=== PATIENT | male | born 1940 | race Caucasian/White ===

== ENCOUNTER 2018-04-13 07:45 | Inpatient (IN) | payer MEDICARE, OTHER ==
[2018-04-13 08:24] LABS: ADD MAN DIFF? NO
[2018-04-13 08:27] LABS: BASOPHILS % 0.1 % (0.0-2.0); HEMATOCRIT 40.5 % (42.0-52.0); HEMOGLOBIN 13.6 g/dl (14.0-18.0); LYMPHOCYTES # 1.5 10^3/ul (0.8-2.9); LYMPHOCYTES % 21.2 % (15.0-51.0); MEAN CORPUSCULAR HEMOGLOBIN 29.8 pg (29.0-33.0); MEAN CORPUSCULAR HGB CONC 33.6 g/dl (32.0-37.0); MEAN CORPUSCULAR VOLUME 88.8 fl (82.0-101.0); MEAN PLATELET VOLUME 9.7 fl (7.4-10.4); MONOCYTE # 0.5 10^3/ul (0.3-0.9); MONOCYTES % 7.2 % (0.0-11.0); NEUTROPHILS % 71.4 % (39.0-77.0); PLATELET COUNT 126 10^3/UL (140-415); POSITIVE DIFF @See below; RED BLOOD COUNT 4.56 10^6/ul (4.70-6.10); RED CELL DISTRIBUTION WIDTH 13.4 % (11.5-14.5)
[2018-04-13 08:47] LABS: INR 0.93; PROTIME 12.6 Sec (11.9-14.9)
[2018-04-13 08:48] LABS: PARTIAL THROMBOPLASTIN TIME 27.3 Sec (25.0-35.0)
[2018-04-13 08:50] LABS: ALANINE AMINOTRANSFERASE 47 IU/L (13-69); ALBUMIN 4.2 g/dl (3.3-4.9); ALKALINE PHOSPHATASE 47 IU/L (42-121); AMYLASE 57 U/L (11-123); ANION GAP 16 (8-16); ASPARTATE AMINO TRANSFERASE 37 IU/L (15-46); BILIRUBIN,INDIRECT 1.1 mg/dl (0-1.1); BILIRUBIN,TOTAL 1.1 mg/dl (0.2-1.3); BLOOD UREA NITROGEN 19 mg/dl (7-20); CARBON DIOXIDE 24 mmol/L (21-31); CHLORIDE 102 mmol/L (97-110); CREATININE 1.04 mg/dl (0.61-1.24); GLUCOSE 163 mg/dl (70-220); LIPASE 45 U/L (23-300); SODIUM 138 mmol/L (135-144)
[2018-04-13 09:02] LABS: TROPONIN-I < 0.012 ng/ml (0.000-0.120)
[2018-04-13] MEDS: SOD CHLORIDE 0.9% 100 ML (09:48)
[2018-04-13] MEDS: IOHEXOL 300MG/ML 150 ML BTL (09:50)
[2018-04-13] MEDS ORDERED: ACETAMINOPHEN 650 MG SUPP PR (13:30)
[2018-04-13] MEDS ORDERED: NACL 0.9% 3 ML SYG IV (13:30)
[2018-04-13] MEDS ORDERED: HYDROCODONE/APAP (5/325) TAB PO (13:30)
[2018-04-13] MEDS ORDERED: morphine 2 MG INJ IV (13:30)
[2018-04-13 14:10] LABS: THYROID STIMULATING HORMONE 0.419 MIU/L (0.465-4.680)
[2018-04-13 14:45] LABS: FOLATE 12.6 ng/ml (2.8-20.0)
[2018-04-13 15:30] LABS: RAPID PLASMA REAGIN NONREACTIVE (NR)
[2018-04-13] MEDS: LORAZEPAM 2 MG INJ IV (15:51)
[2018-04-13] MEDS: SODIUM CHLORIDE 0.9% 1L BAG IV (15:52)
[2018-04-13] MEDS: NICOTINE (21 MG/24 HR) PATCH TRANSDERM ×2 (16:00→17:39)
[2018-04-13 16:34] LABS: ADD UMIC YES; UR ASCORBIC ACID NEGATIVE (NEGATIVE); UR BILIRUBIN (Dip) NEGATIVE (NEGATIVE); UR BLOOD (Dip) NEGATIVE (NEGATIVE); UR CLARITY CLEAR (CLEAR); UR COLOR YELLOW (YELLOW); UR GLUCOSE (Dip) NEGATIVE (NEGATIVE); UR KETONES (Dip) NEGATIVE (NEGATIVE); UR LEUKOCYTE ESTERASE (Dip) NEGATIVE Leu/ul (NEGATIVE); UR NITRITE (Dip) NEGATIVE (NEGATIVE); UR RBC 3 /HPF (0-5); UR SPECIFIC GRAVITY (Dip) 1.034 (1.003-1.030); UR TOTAL PROTEIN (Dip) 2+ mg/dl (NEGATIVE); UR UROBILINOGEN (Dip) NEGATIVE (NEGATIVE); UR WBC 0 /HPF (0-5)
[2018-04-13 16:42] LABS: LIPASE 46 U/L (23-300)
[2018-04-13 16:48] LABS: LACTIC ACID 2.3 mmol/L (0.5-2.0)
[2018-04-13] MEDS: ACETAMINOPHEN 325 MG TAB PO ×2 (17:39→23:12)
[2018-04-13] MEDS: FAMOTIDINE 20 MG INJ IV (17:39)
[2018-04-13] MEDS ORDERED: PIPER-TAZO 3.375 GM IV (PMX) 100 ML IVPB (19:00)
[2018-04-13] MEDS: PIPER-TAZO 3.375 GM IV (PMX) 100 ML IVPB (21:06)
[2018-04-13] MEDS: SENNA/DOCUSATE NA (8.6MG/50MG) TAB PO (21:06)
[2018-04-13] MEDS: MAGNESIUM HYDROXIDE 30ML CUP PO (21:07)
[2018-04-13] MEDS: TAMSULOSIN (SR) 0.4 MG CAP PO (21:07)
[2018-04-13] MEDS: SOD CHLORIDE 0.9% 1,000 ML IV (21:39)
[2018-04-13] MEDS ORDERED: VANCOMYCIN IV PER PHARMACY XX (23:30)
[2018-04-14] MEDS: VANCOMYCIN 1.5 GM in SOD CHLORIDE 0.9% 250 ML IVPB (00:17)
[2018-04-14] MEDS: IBUPROFEN 200 MG TAB PO (01:21)
[2018-04-14 05:05] LABS: ADD MAN DIFF? NO
[2018-04-14 05:11] LABS: BASOPHILS % 0.4 % (0.0-2.0); EOSINOPHILS % 0.1 % (0.0-7.0); HEMOGLOBIN 12.4 g/dl (14.0-18.0); LYMPHOCYTES # 1.9 10^3/ul (0.8-2.9); LYMPHOCYTES % 26.6 % (15.0-51.0); MEAN CORPUSCULAR HEMOGLOBIN 30.2 pg (29.0-33.0); MEAN CORPUSCULAR HGB CONC 33.5 g/dl (32.0-37.0); MEAN PLATELET VOLUME 10.1 fl (7.4-10.4); MONOCYTE # 0.5 10^3/ul (0.3-0.9); MONOCYTES % 6.6 % (0.0-11.0); NEUTROPHIL # 4.6 10^3/ul (1.6-7.5); NEUTROPHILS % 65.7 % (39.0-77.0); PLATELET COUNT 115 10^3/UL (140-415); POSITIVE DIFF @See below; RED BLOOD COUNT 4.11 10^6/ul (4.70-6.10); RED CELL DISTRIBUTION WIDTH 13.3 % (11.5-14.5)
[2018-04-14 05:17] LABS: LACTIC ACID 0.9 mmol/L (0.5-2.0)
[2018-04-14] MEDS: PIPER-TAZO 3.375 GM IV (PMX) 100 ML IVPB ×3 (05:28→22:23)
[2018-04-14 05:33] LABS: ALBUMIN 3.7 g/dl (3.3-4.9); ALBUMIN/GLOBULIN RATIO 1.23; ALKALINE PHOSPHATASE 37 IU/L (42-121); ANION GAP 12 (8-16); ASPARTATE AMINO TRANSFERASE 37 IU/L (15-46); BILIRUBIN,INDIRECT 1.3 mg/dl (0-1.1); BILIRUBIN,TOTAL 1.3 mg/dl (0.2-1.3); BLOOD UREA NITROGEN 25 mg/dl (7-20); CALCIUM 8.4 mg/dl (8.4-10.2); CARBON DIOXIDE 24 mmol/L (21-31); CHLORIDE 104 mmol/L (97-110); CHOL/HDL RATIO 5.4 RATIO; CHOLESTEROL 131 mg/dl (100-200); CREATININE 1.11 mg/dl (0.61-1.24); GLUCOSE 132 mg/dl (70-220); HDL CHOLESTEROL 24 mg/dl (31-75); LDL CHOLESTEROL,CALCULATED 84 mg/dl; MAGNESIUM 2.1 mg/dl (1.7-2.5); PHOSPHORUS 3.5 mg/dl (2.5-4.9); POTASSIUM 3.6 mmol/L (3.5-5.1); SODIUM 136 mmol/L (135-144); TOTAL PROTEIN 6.7 g/dl (6.1-8.1); TRIGLYCERIDES 115 mg/dl (0-149)
[2018-04-14] MEDS: ONDANSETRON 4 MG INJ IV ×2 (05:34→11:04)
[2018-04-14 07:21] LABS: LYMPHOCYTES #M 1.7 10^3/ul (0.8-2.9); LYMPHOCYTES % (M) 25 % (15-51); MONOCYTE #M 0.1 10^3/ul (0.3-0.9); MONOCYTES % (M) 2 % (0-11); PLASMAC%(M) 1 % (0); PLATELET ESTIMATE DECREASED; SEGMENTED NEUTROPHILS (M) % 72 % (39-77); SMUDGE%M 6 % (0-0)
[2018-04-14 07:24] LABS: ALANINE AMINOTRANSFERASE 47 IU/L (13-69)
[2018-04-14] MEDS: FAMOTIDINE 20 MG INJ IV (08:39)
[2018-04-14] MEDS: ENOXAPARIN 30 MG/0.3 ML SYG SC (08:39)
[2018-04-14] MEDS: NICOTINE (21 MG/24 HR) PATCH TRANSDERM (08:40)
[2018-04-14] MEDS ORDERED: FAMOTIDINE 20 MG TAB PO (09:00)
[2018-04-14 09:48] LABS: HEMOGLOBIN A1C 6.6 % (0-5.9)
[2018-04-14] MEDS: ACETAMINOPHEN 325 MG TAB PO ×2 (13:00→20:36)
[2018-04-14] MEDS ORDERED: VANCOMYCIN 1.25 GM in SOD CHLORIDE 0.9% 250 ML IVPB (13:00)
[2018-04-14] MEDS: VANCOMYCIN 1.25 GM in SOD CHLORIDE 0.9% 250 ML IVPB (13:52)
[2018-04-14] MEDS: SOD CHLORIDE 0.9% 1,000 ML IV (14:10)
[2018-04-14] MEDS ORDERED: MAGNESIUM HYDROXIDE 30ML CUP PO (20:00)
[2018-04-14] MEDS: SENNA/DOCUSATE NA (8.6MG/50MG) TAB PO (20:23)
[2018-04-14] MEDS: TAMSULOSIN (SR) 0.4 MG CAP PO (20:27)
[2018-04-14] MEDS: MAGNESIUM HYDROXIDE 30ML CUP PO (20:27)
[2018-04-14] MEDS: SOD CHLORIDE 0.9% 500 ML IV (20:42)
[2018-04-14 23:01] LABS: PROSTATE SPECIFIC ANTIGEN 1.9 ng/ml (0.0-4.0)
[2018-04-15] MEDS: SOD CHLORIDE 0.9% 1,000 ML IV ×3 (01:08→23:30)
[2018-04-15] MEDS: PIPER-TAZO 3.375 GM IV (PMX) 100 ML IVPB ×3 (05:10→21:52)
[2018-04-15] MEDS: ACETAMINOPHEN 325 MG TAB PO ×2 (05:14→18:23)
[2018-04-15 05:49] LABS: ADD MAN DIFF? NO
[2018-04-15 06:04] LABS: WHITE BLOOD COUNT 8.5 10^3/ul (4.8-10.8)
[2018-04-15 06:04] LABS: BASOPHILS % 0.1 % (0.0-2.0); HEMATOCRIT 36.3 % (42.0-52.0); HEMOGLOBIN 12.3 g/dl (14.0-18.0); LYMPHOCYTES # 0.8 10^3/ul (0.8-2.9); LYMPHOCYTES % 9.3 % (15.0-51.0); MEAN CORPUSCULAR HEMOGLOBIN 30.1 pg (29.0-33.0); MEAN CORPUSCULAR HGB CONC 33.9 g/dl (32.0-37.0); MEAN CORPUSCULAR VOLUME 88.8 fl (82.0-101.0); MEAN PLATELET VOLUME 10.5 fl (7.4-10.4); MONOCYTE # 0.5 10^3/ul (0.3-0.9); MONOCYTES % 5.5 % (0.0-11.0); NEUTROPHIL # 7.2 10^3/ul (1.6-7.5); NEUTROPHILS % 84.6 % (39.0-77.0); PLATELET COUNT 121 10^3/UL (140-415); POSITIVE DIFF @See below; RED BLOOD COUNT 4.09 10^6/ul (4.70-6.10); RED CELL DISTRIBUTION WIDTH 12.9 % (11.5-14.5)
[2018-04-15 07:04] LABS: ALBUMIN 3.5 g/dl (3.3-4.9); ALBUMIN/GLOBULIN RATIO 1.16; ALKALINE PHOSPHATASE 38 IU/L (42-121); ANION GAP 11 (8-16); ASPARTATE AMINO TRANSFERASE 30 IU/L (15-46); BILIRUBIN,INDIRECT 1.1 mg/dl (0-1.1); BILIRUBIN,TOTAL 1.1 mg/dl (0.2-1.3); BLOOD UREA NITROGEN 26 mg/dl (7-20); CALCIUM 8.1 mg/dl (8.4-10.2); CARBON DIOXIDE 25 mmol/L (21-31); CHLORIDE 105 mmol/L (97-110); CREATININE 1.02 mg/dl (0.61-1.24); GLUCOSE 210 mg/dl (70-220); POTASSIUM 3.2 mmol/L (3.5-5.1); SODIUM 138 mmol/L (135-144); TOTAL PROTEIN 6.5 g/dl (6.1-8.1)
[2018-04-15 08:09] LABS: ALANINE AMINOTRANSFERASE 46 IU/L (13-69)
[2018-04-15] MEDS: FAMOTIDINE 20 MG INJ IV (08:35)
[2018-04-15] MEDS: MAGNESIUM HYDROXIDE 30ML CUP PO ×2 (08:35→21:52)
[2018-04-15] MEDS: ENOXAPARIN 30 MG/0.3 ML SYG SC (08:42)
[2018-04-15] MEDS: NICOTINE (21 MG/24 HR) PATCH TRANSDERM (08:42)
[2018-04-15] MEDS ORDERED: GLUCOSE GEL 15 GRAM TUBE BUCCAL (11:30)
[2018-04-15] MEDS ORDERED: GLUCOSE GEL 15 GRAM TUBE PO ×2 (11:30)
[2018-04-15] MEDS ORDERED: GLUCAGON 1 MG INJ IM (11:30)
[2018-04-15] MEDS ORDERED: DEXTROSE 50% 50 ML SYRINGE IV ×2 (11:30)
[2018-04-15] MEDS: POTASSIUM CHLORIDE 20 MEQ POWDER FOR ORAL SOLN PO (12:06)
[2018-04-15] MEDS: ONDANSETRON 4 MG INJ IV (12:13)
[2018-04-15] MEDS: INSULIN ASPART [NOVOLOG] 3 ML PEN SC ×3 (12:13→21:56)
[2018-04-15] MEDS: VANCOMYCIN 750 MG in SOD CHLORIDE 0.9% 150 ML IVPB (14:47)
[2018-04-15] MEDS: TAMSULOSIN (SR) 0.4 MG CAP PO (21:52)
[2018-04-15] MEDS: SENNA/DOCUSATE NA (8.6MG/50MG) TAB PO (21:52)
[2018-04-15] MEDS: LORAZEPAM 1 MG TAB PO (23:03)
[2018-04-16] MEDS: ACCU-CHEK XX (02:00)
[2018-04-16] MEDS: VANCOMYCIN 750 MG in SOD CHLORIDE 0.9% 150 ML IVPB (05:58)
[2018-04-16] MEDS: PIPER-TAZO 3.375 GM IV (PMX) 100 ML IVPB ×2 (05:59→13:32)
[2018-04-16 06:31] LABS: ADD MAN DIFF? NO
[2018-04-16 06:35] LABS: BASOPHILS % 0.1 % (0.0-2.0); HEMOGLOBIN 12.3 g/dl (14.0-18.0); MEAN CORPUSCULAR HEMOGLOBIN 30.3 pg (29.0-33.0); MEAN CORPUSCULAR HGB CONC 34.2 g/dl (32.0-37.0); MEAN CORPUSCULAR VOLUME 88.7 fl (82.0-101.0); MEAN PLATELET VOLUME 10.4 fl (7.4-10.4); MONOCYTE # 0.5 10^3/ul (0.3-0.9); MONOCYTES % 6.1 % (0.0-11.0); NEUTROPHIL # 6.5 10^3/ul (1.6-7.5); NEUTROPHILS % 81.2 % (39.0-77.0); PLATELET COUNT 138 10^3/UL (140-415); RED BLOOD COUNT 4.06 10^6/ul (4.70-6.10); RED CELL DISTRIBUTION WIDTH 13.1 % (11.5-14.5)
[2018-04-16 07:16] LABS: ANION GAP 11 (8-16); BLOOD UREA NITROGEN 24 mg/dl (7-20); CALCIUM 8.3 mg/dl (8.4-10.2); CARBON DIOXIDE 26 mmol/L (21-31); CHLORIDE 106 mmol/L (97-110); CREATININE 0.91 mg/dl (0.61-1.24); GLUCOSE 153 mg/dl (70-220); MAGNESIUM 2.2 mg/dl (1.7-2.5); PHOSPHORUS 1.5 mg/dl (2.5-4.9); SODIUM 140 mmol/L (135-144)
[2018-04-16 07:25] LABS: POTASSIUM 2.8 mmol/L (3.5-5.1)
[2018-04-16] MEDS: PANTOPRAZOLE (EC) 40 MG TAB PO (07:40)
[2018-04-16 08:04] LABS: FREE T4 (FREE THYROXINE) 1.18 ng/dl (0.78-2.44)
[2018-04-16] MEDS: FAMOTIDINE 20 MG INJ IV (08:10)
[2018-04-16] MEDS: NICOTINE (21 MG/24 HR) PATCH TRANSDERM (08:12)
[2018-04-16] MEDS: INSULIN ASPART [NOVOLOG] 3 ML PEN SC ×4 (08:14→20:19)
[2018-04-16] MEDS: ENOXAPARIN 30 MG/0.3 ML SYG SC (08:15)
[2018-04-16] MEDS: METHYLPRED. NA SUCC 1,000 MG in DEXTROSE 5% 50 ML IVPB (08:27)
[2018-04-16] MEDS: CYANOCOBALAMIN 1000 MCG INJ IM (08:28)
[2018-04-16] MEDS: POTASSIUM CHLORIDE 100 ML IVPB ×3 (08:31→13:00)
[2018-04-16] MEDS ORDERED: SENNA/DOCUSATE NA (8.6MG/50MG) TAB PO (12:00)
[2018-04-16 12:43] LABS: VANCOMYCIN,TROUGH 9.7 ug/ml (10.0-20.0)
[2018-04-16] MEDS: POTASSIUM PHOSPHATE 15 MM in SOD CHLORIDE 0.9% 250 ML IVPB (12:48)
[2018-04-16] MEDS: VANCOMYCIN 1 GM 250 ML IVPB (13:27)
[2018-04-16 15:15] LABS: RHEUMATOID FACTOR NEGATIVE (NEGATIVE)
[2018-04-16] MEDS: SOD CHLORIDE 0.9% 1,000 ML IV (16:14)
[2018-04-16] MEDS: TAMSULOSIN (SR) 0.4 MG CAP PO (20:22)
[2018-04-17] MEDS: ACCU-CHEK XX (02:00)
[2018-04-17] MEDS: SOD CHLORIDE 0.9% 1,000 ML IV ×2 (02:32→20:14)
[2018-04-17] MEDS: PANTOPRAZOLE (EC) 40 MG TAB PO (06:00)
[2018-04-17 06:47] LABS: ADD MAN DIFF? NO
[2018-04-17 06:51] LABS: WHITE BLOOD COUNT 6.8 10^3/ul (4.8-10.8)
[2018-04-17 06:51] LABS: HEMATOCRIT 34.1 % (42.0-52.0); HEMOGLOBIN 11.6 g/dl (14.0-18.0); LYMPHOCYTES # 0.8 10^3/ul (0.8-2.9); MEAN CORPUSCULAR VOLUME 88.1 fl (82.0-101.0); MEAN PLATELET VOLUME 11.1 fl (7.4-10.4); MONOCYTE # 0.4 10^3/ul (0.3-0.9); MONOCYTES % 6.4 % (0.0-11.0); NEUTROPHIL # 5.5 10^3/ul (1.6-7.5); NEUTROPHILS % 80.9 % (39.0-77.0); PLATELET COUNT 165 10^3/UL (140-415); RED BLOOD COUNT 3.87 10^6/ul (4.70-6.10); RED CELL DISTRIBUTION WIDTH 13.1 % (11.5-14.5)
[2018-04-17 07:16] LABS: ANION GAP 13 (8-16); BLOOD UREA NITROGEN 26 mg/dl (7-20); CALCIUM 8.1 mg/dl (8.4-10.2); CARBON DIOXIDE 25 mmol/L (21-31); CHLORIDE 105 mmol/L (97-110); CREATININE 0.72 mg/dl (0.61-1.24); GLUCOSE 211 mg/dl (70-220); MAGNESIUM 2.2 mg/dl (1.7-2.5); PHOSPHORUS 2.3 mg/dl (2.5-4.9); POTASSIUM 3.5 mmol/L (3.5-5.1); SODIUM 139 mmol/L (135-144)
[2018-04-17] MEDS: ENOXAPARIN 30 MG/0.3 ML SYG SC (07:38)
[2018-04-17] MEDS: NICOTINE (21 MG/24 HR) PATCH TRANSDERM (08:14)
[2018-04-17] MEDS: FAMOTIDINE 20 MG INJ IV (08:14)
[2018-04-17] MEDS: CYANOCOBALAMIN 1000 MCG INJ IM (08:15)
[2018-04-17] MEDS: INSULIN ASPART [NOVOLOG] 3 ML PEN SC ×4 (08:20→20:12)
[2018-04-17] MEDS: METHYLPRED. NA SUCC 1,000 MG in DEXTROSE 5% 50 ML IVPB (08:26)
[2018-04-17] MEDS: LIDOCAINE 1% (MPF) 5 ML VIAL (11:11)
[2018-04-17 13:36] LABS: CSF MN% 90.9 %; CSF PMN% 9.1 %; CSF RBC 3000 /uL (0-0)
[2018-04-17 13:49] LABS: GLUCOSE,CSF 93 mg/dl (50-80)
[2018-04-17 14:01] LABS: TOTAL PROTEIN,CSF 168 mg/dl (12-60)
[2018-04-17 14:13] LABS: CSF WBC 88 /cmm (0-10)
[2018-04-17 14:14] LABS: CSF COLOR PINKISH
[2018-04-17 14:14] LABS: CSF CLARITY CLOUDY; CSF VOLUME 7.5 ml; CSF#TUBE COUNT TUBE#4; CSF#TUBES REC'D 4
[2018-04-17 16:26] LABS: MYELOPEROXIDASE ANTIBODY <1.0 AI; PROTEINASE-3 ANTIBODY <1.0 AI
[2018-04-17 17:00] LABS: HIV 1&2 ANTIBODY NEGATIVE (NEGATIVE)
[2018-04-17 19:32] LABS: ANA SCREEN POSITIVE (NEGATIVE)
[2018-04-17] MEDS: TAMSULOSIN (SR) 0.4 MG CAP PO (20:09)
[2018-04-18] MEDS: ACCU-CHEK XX (02:00)
[2018-04-18 06:11] LABS: ADD MAN DIFF? NO
[2018-04-18 06:15] LABS: WHITE BLOOD COUNT 6.2 10^3/ul (4.8-10.8)
[2018-04-18 06:15] LABS: HEMATOCRIT 34.5 % (42.0-52.0); HEMOGLOBIN 11.9 g/dl (14.0-18.0); LYMPHOCYTES # 0.6 10^3/ul (0.8-2.9); LYMPHOCYTES % 9.6 % (15.0-51.0); MEAN CORPUSCULAR HEMOGLOBIN 30.1 pg (29.0-33.0); MEAN CORPUSCULAR HGB CONC 34.5 g/dl (32.0-37.0); MEAN CORPUSCULAR VOLUME 87.3 fl (82.0-101.0); MEAN PLATELET VOLUME 10.9 fl (7.4-10.4); MONOCYTE # 0.4 10^3/ul (0.3-0.9); MONOCYTES % 6.7 % (0.0-11.0); NEUTROPHIL # 5.2 10^3/ul (1.6-7.5); NEUTROPHILS % 82.7 % (39.0-77.0); PLATELET COUNT 199 10^3/UL (140-415); RED BLOOD COUNT 3.95 10^6/ul (4.70-6.10); RED CELL DISTRIBUTION WIDTH 12.8 % (11.5-14.5)
[2018-04-18] MEDS: PANTOPRAZOLE (EC) 40 MG TAB PO (06:54)
[2018-04-18 06:59] LABS: ANION GAP 11 (8-16); CALCIUM 8.6 mg/dl (8.4-10.2); CARBON DIOXIDE 23 mmol/L (21-31); CHLORIDE 107 mmol/L (97-110); CREATININE 0.73 mg/dl (0.61-1.24); GLUCOSE 244 mg/dl (70-220); MAGNESIUM 2.3 mg/dl (1.7-2.5); PHOSPHORUS 2.6 mg/dl (2.5-4.9); POTASSIUM 4.3 mmol/L (3.5-5.1); SODIUM 137 mmol/L (135-144)
[2018-04-18 07:36] LABS: ANCA SCREEN NEGATIVE (NEGATIVE)
[2018-04-18 07:47] LABS: BLOOD UREA NITROGEN 29 mg/dl (7-20)
[2018-04-18] MEDS: FAMOTIDINE 20 MG INJ IV (08:08)
[2018-04-18] MEDS: ONDANSETRON 4 MG INJ IV (08:09)
[2018-04-18] MEDS: CYANOCOBALAMIN 1000 MCG INJ IM (08:11)
[2018-04-18] MEDS: NICOTINE (21 MG/24 HR) PATCH TRANSDERM (08:15)
[2018-04-18] MEDS: INSULIN ASPART [NOVOLOG] 3 ML PEN SC ×6 (08:17→20:35)
[2018-04-18] MEDS: ENOXAPARIN 30 MG/0.3 ML SYG SC (08:17)
[2018-04-18] MEDS: METHYLPRED. NA SUCC 1,000 MG in DEXTROSE 5% 50 ML IVPB (08:36)
[2018-04-18 13:46] LABS: ANA PATTERN SPECKLED; ANA TITER 1:40 titer
[2018-04-18] MEDS: SOD CHLORIDE 0.9% 1,000 ML IV (14:25)
[2018-04-18] MEDS: FAMOTIDINE 20 MG TAB PO (20:22)
[2018-04-18] MEDS: TAMSULOSIN (SR) 0.4 MG CAP PO (20:22)
[2018-04-18] MEDS: INSULIN GLARGINE [LANTus] (100 UNITS/ML) SYG SC (20:26)
[2018-04-19] MEDS: ACCU-CHEK XX (02:00)
[2018-04-19] MEDS: PANTOPRAZOLE (EC) 40 MG TAB PO (05:51)
[2018-04-19 07:02] LABS: ADD MAN DIFF? NO
[2018-04-19 07:15] LABS: HEMATOCRIT 34.6 % (42.0-52.0); HEMOGLOBIN 11.9 g/dl (14.0-18.0); LYMPHOCYTES # 0.7 10^3/ul (0.8-2.9); LYMPHOCYTES % 9.8 % (15.0-51.0); MEAN CORPUSCULAR HEMOGLOBIN 30.3 pg (29.0-33.0); MEAN CORPUSCULAR HGB CONC 34.4 g/dl (32.0-37.0); MEAN PLATELET VOLUME 10.9 fl (7.4-10.4); MONOCYTE # 0.7 10^3/ul (0.3-0.9); MONOCYTES % 9.5 % (0.0-11.0); NEUTROPHIL # 5.4 10^3/ul (1.6-7.5); NEUTROPHILS % 79.5 % (39.0-77.0); PLATELET COUNT 219 10^3/UL (140-415); RED BLOOD COUNT 3.93 10^6/ul (4.70-6.10)
[2018-04-19 07:15] LABS: WHITE BLOOD COUNT 6.8 10^3/ul (4.8-10.8)
[2018-04-19 07:50] LABS: ANION GAP 11 (8-16); BLOOD UREA NITROGEN 28 mg/dl (7-20); CALCIUM 8.6 mg/dl (8.4-10.2); CARBON DIOXIDE 24 mmol/L (21-31); CHLORIDE 105 mmol/L (97-110); CREATININE 0.81 mg/dl (0.61-1.24); GLUCOSE 229 mg/dl (70-220); MAGNESIUM 2.4 mg/dl (1.7-2.5); PHOSPHORUS 2.8 mg/dl (2.5-4.9); POTASSIUM 4.3 mmol/L (3.5-5.1); SODIUM 136 mmol/L (135-144)
[2018-04-19] MEDS: INSULIN ASPART [NOVOLOG] 3 ML PEN SC ×7 (08:21→20:16)
[2018-04-19] MEDS: FAMOTIDINE 20 MG TAB PO ×2 (08:23→20:12)
[2018-04-19] MEDS: CYANOCOBALAMIN 1000 MCG INJ IM (08:25)
[2018-04-19] MEDS: NICOTINE (21 MG/24 HR) PATCH TRANSDERM (08:25)
[2018-04-19] MEDS: ENOXAPARIN 30 MG/0.3 ML SYG SC (08:36)
[2018-04-19] MEDS: METHYLPRED. NA SUCC 1,000 MG in DEXTROSE 5% 50 ML IVPB (10:31)
[2018-04-19] MEDS: SOD CHLORIDE 0.9% 1,000 ML IV (10:50)
[2018-04-19 13:52] LABS: ANTI-DNA (DOUBLE STRANDED) <95 U/mL (< 301)
[2018-04-19] MEDS: TAMSULOSIN (SR) 0.4 MG CAP PO (20:12)
[2018-04-19] MEDS: INSULIN GLARGINE [LANTus] (100 UNITS/ML) SYG SC (20:16)
[2018-04-20] MEDS: ACCU-CHEK XX (02:00)
[2018-04-20] MEDS: SOD CHLORIDE 0.9% 1,000 ML IV ×2 (02:16→09:30)
[2018-04-20] MEDS: PANTOPRAZOLE (EC) 40 MG TAB PO (06:14)
[2018-04-20] MEDS: INSULIN ASPART [NOVOLOG] 3 ML PEN SC ×7 (07:44→20:04)
[2018-04-20 08:12] LABS: ADD MAN DIFF? NO
[2018-04-20 08:23] LABS: HEMATOCRIT 35.7 % (42.0-52.0); HEMOGLOBIN 12.1 g/dl (14.0-18.0); LYMPHOCYTES # 0.7 10^3/ul (0.8-2.9); LYMPHOCYTES % 9.9 % (15.0-51.0); MEAN CORPUSCULAR HEMOGLOBIN 29.9 pg (29.0-33.0); MEAN CORPUSCULAR HGB CONC 33.9 g/dl (32.0-37.0); MEAN CORPUSCULAR VOLUME 88.1 fl (82.0-101.0); MEAN PLATELET VOLUME 10.5 fl (7.4-10.4); MONOCYTE # 0.7 10^3/ul (0.3-0.9); NEUTROPHIL # 5.8 10^3/ul (1.6-7.5); NEUTROPHILS % 78.5 % (39.0-77.0); PLATELET COUNT 217 10^3/UL (140-415); RED BLOOD COUNT 4.05 10^6/ul (4.70-6.10); RED CELL DISTRIBUTION WIDTH 12.8 % (11.5-14.5)
[2018-04-20 08:23] LABS: WHITE BLOOD COUNT 7.4 10^3/ul (4.8-10.8)
[2018-04-20 08:53] LABS: ANION GAP 12 (8-16); BLOOD UREA NITROGEN 27 mg/dl (7-20); CALCIUM 8.6 mg/dl (8.4-10.2); CARBON DIOXIDE 24 mmol/L (21-31); CHLORIDE 103 mmol/L (97-110); CREATININE 0.71 mg/dl (0.61-1.24); GLUCOSE 203 mg/dl (70-220); MAGNESIUM 2.4 mg/dl (1.7-2.5); PHOSPHORUS 3.4 mg/dl (2.5-4.9); POTASSIUM 4.2 mmol/L (3.5-5.1); SODIUM 135 mmol/L (135-144)
[2018-04-20] MEDS: NICOTINE (21 MG/24 HR) PATCH TRANSDERM (09:29)
[2018-04-20] MEDS: DOCUSATE SODIUM 100 MG CAP PO (09:30)
[2018-04-20] MEDS: FAMOTIDINE 20 MG TAB PO ×2 (09:30→20:03)
[2018-04-20] MEDS: CYANOCOBALAMIN 1000 MCG INJ IM (09:30)
[2018-04-20] MEDS: METHYLPRED. NA SUCC 1,000 MG in DEXTROSE 5% 50 ML IVPB (09:33)
[2018-04-20] MEDS: ENOXAPARIN 30 MG/0.3 ML SYG SC (09:42)
[2018-04-20 16:58] LABS: ENTEROVIRUS - SOURCE CEREBROSPINAL FLUID
[2018-04-20] MEDS: TAMSULOSIN (SR) 0.4 MG CAP PO (20:03)
[2018-04-20] MEDS: INSULIN GLARGINE [LANTus] (100 UNITS/ML) SYG SC (20:09)
[2018-04-20] MEDS: LORAZEPAM 1 MG TAB PO (21:15)
[2018-04-21] MEDS: ACCU-CHEK XX (02:00)
[2018-04-21] MEDS: PANTOPRAZOLE (EC) 40 MG TAB PO (06:09)
[2018-04-21] MEDS: SOD CHLORIDE 0.9% 1,000 ML IV (06:10)
[2018-04-21 06:56] LABS: ADD MAN DIFF? NO
[2018-04-21 06:59] LABS: WHITE BLOOD COUNT 8.2 10^3/ul (4.8-10.8)
[2018-04-21 06:59] LABS: BASOPHILS % 0.1 % (0.0-2.0); HEMATOCRIT 37.2 % (42.0-52.0); HEMOGLOBIN 12.8 g/dl (14.0-18.0); LYMPHOCYTES # 0.7 10^3/ul (0.8-2.9); LYMPHOCYTES % 8.3 % (15.0-51.0); MEAN CORPUSCULAR HGB CONC 34.4 g/dl (32.0-37.0); MEAN CORPUSCULAR VOLUME 87.3 fl (82.0-101.0); MEAN PLATELET VOLUME 10.1 fl (7.4-10.4); MONOCYTE # 0.7 10^3/ul (0.3-0.9); MONOCYTES % 8.5 % (0.0-11.0); NEUTROPHIL # 6.6 10^3/ul (1.6-7.5); NEUTROPHILS % 80.2 % (39.0-77.0); PLATELET COUNT 257 10^3/UL (140-415); RED BLOOD COUNT 4.26 10^6/ul (4.70-6.10); RED CELL DISTRIBUTION WIDTH 12.7 % (11.5-14.5)
[2018-04-21 07:29] LABS: ANION GAP 12 (8-16); BLOOD UREA NITROGEN 27 mg/dl (7-20); CALCIUM 8.6 mg/dl (8.4-10.2); CARBON DIOXIDE 25 mmol/L (21-31); CHLORIDE 102 mmol/L (97-110); CREATININE 0.76 mg/dl (0.61-1.24); GLUCOSE 182 mg/dl (70-220); PHOSPHORUS 3.7 mg/dl (2.5-4.9); POTASSIUM 3.9 mmol/L (3.5-5.1); SODIUM 135 mmol/L (135-144)
[2018-04-21] MEDS: CYANOCOBALAMIN 1000 MCG INJ IM (08:08)
[2018-04-21] MEDS: FAMOTIDINE 20 MG TAB PO ×2 (08:09→21:17)
[2018-04-21] MEDS: NICOTINE (21 MG/24 HR) PATCH TRANSDERM (08:09)
[2018-04-21] MEDS: DOCUSATE SODIUM 100 MG CAP PO (08:09)
[2018-04-21 08:16] LABS: MAGNESIUM 2.4 mg/dl (1.7-2.5)
[2018-04-21] MEDS: INSULIN ASPART [NOVOLOG] 3 ML PEN SC ×7 (08:18→21:00)
[2018-04-21] MEDS: ENOXAPARIN 30 MG/0.3 ML SYG SC (08:18)
[2018-04-21] MEDS ORDERED: BISACODYL (EC) 5 MG TAB PO (13:00)
[2018-04-21] MEDS: BISACODYL (EC) 5 MG TAB PO (17:15)
[2018-04-21] MEDS: INSULIN GLARGINE [LANTus] (100 UNITS/ML) SYG SC (21:17)
[2018-04-21] MEDS: TAMSULOSIN (SR) 0.4 MG CAP PO (21:17)
[2018-04-22] MEDS: LACTULOSE 30ML CUP PO ×5 (00:04→17:50)
[2018-04-22] MEDS: ACCU-CHEK XX (02:00)
[2018-04-22] MEDS: PANTOPRAZOLE (EC) 40 MG TAB PO (05:25)
[2018-04-22 06:13] LABS: ADD MAN DIFF? NO
[2018-04-22 06:27] LABS: BASOPHILS % 0.1 % (0.0-2.0); EOSINOPHILS # 0.1 10^3/ul (0.0-0.5); EOSINOPHILS % 1.3 % (0.0-7.0); HEMATOCRIT 39.2 % (42.0-52.0); HEMOGLOBIN 13.5 g/dl (14.0-18.0); LYMPHOCYTES % 12.7 % (15.0-51.0); MEAN CORPUSCULAR HEMOGLOBIN 30.2 pg (29.0-33.0); MEAN CORPUSCULAR HGB CONC 34.4 g/dl (32.0-37.0); MEAN CORPUSCULAR VOLUME 87.7 fl (82.0-101.0); MONOCYTE # 0.8 10^3/ul (0.3-0.9); MONOCYTES % 10.2 % (0.0-11.0); NEUTROPHIL # 5.8 10^3/ul (1.6-7.5); NEUTROPHILS % 74.4 % (39.0-77.0); PLATELET COUNT 240 10^3/UL (140-415); RED BLOOD COUNT 4.47 10^6/ul (4.70-6.10); RED CELL DISTRIBUTION WIDTH 13.2 % (11.5-14.5)
[2018-04-22 06:27] LABS: WHITE BLOOD COUNT 7.7 10^3/ul (4.8-10.8)
[2018-04-22 06:47] LABS: ANION GAP 9 (8-16); BLOOD UREA NITROGEN 27 mg/dl (7-20); CALCIUM 8.4 mg/dl (8.4-10.2); CARBON DIOXIDE 27 mmol/L (21-31); CHLORIDE 102 mmol/L (97-110); CREATININE 0.71 mg/dl (0.61-1.24); GLUCOSE 137 mg/dl (70-220); MAGNESIUM 2.3 mg/dl (1.7-2.5); PHOSPHORUS 3.7 mg/dl (2.5-4.9); SODIUM 134 mmol/L (135-144)
[2018-04-22] MEDS: INSULIN ASPART [NOVOLOG] 3 ML PEN SC ×7 (07:55→20:32)
[2018-04-22] MEDS: FAMOTIDINE 20 MG TAB PO (08:28)
[2018-04-22] MEDS: NICOTINE (21 MG/24 HR) PATCH TRANSDERM (08:29)
[2018-04-22] MEDS: CYANOCOBALAMIN 1000 MCG INJ IM (08:30)
[2018-04-22] MEDS: ENOXAPARIN 30 MG/0.3 ML SYG SC (08:31)
[2018-04-22] MEDS: predniSONE 20 MG TAB PO (14:24)
[2018-04-22] MEDS: NA PHOSPHATE/BIPHOS 133 ML ENEMA PR (18:56)
[2018-04-22] MEDS: TAMSULOSIN (SR) 0.4 MG CAP PO (20:29)
[2018-04-22] MEDS: INSULIN GLARGINE [LANTus] (100 UNITS/ML) SYG SC (20:32)
[2018-04-23] MEDS: ACCU-CHEK XX (02:28)
[2018-04-23] MEDS: LACTULOSE 30ML CUP PO ×3 (06:11→17:20)
[2018-04-23] MEDS: ENOXAPARIN 40 MG/0.4 ML SYG SC (08:42)
[2018-04-23] MEDS: INSULIN ASPART [NOVOLOG] 3 ML PEN SC ×7 (08:46→20:51)
[2018-04-23] MEDS: NICOTINE (21 MG/24 HR) PATCH TRANSDERM (08:47)
[2018-04-23] MEDS: FAMOTIDINE 20 MG TAB PO (08:47)
[2018-04-23] MEDS: CYANOCOBALAMIN 1000 MCG INJ IM (08:50)
[2018-04-23] MEDS: predniSONE 20 MG TAB PO (14:56)
[2018-04-23] MEDS: INSULIN GLARGINE [LANTus] (100 UNITS/ML) SYG SC (20:50)
[2018-04-23] MEDS: TAMSULOSIN (SR) 0.4 MG CAP PO (20:51)
[2018-04-24 15:37] LABS: WEST NILE VIRUS ANTIBODY (IGG) <1.30 index; WEST NILE VIRUS ANTIBODY (IGM) 3.77 index
== END 2018-04-23 21:50 | DRG 99 ==
LOC: 2NE 04-23 07:45 → E/R 07:45 → TEL 04-15 13:22 → 2NE 04-22 21:50 → PP2 11:58
PROC: 009U3ZX Drainage of Spinal Canal, Percutaneous Approach, Diagnostic (ICD-10-PCS; principal; 2018-04-17)
PROC: B01BZZZ Fluoroscopy of Spinal Cord (ICD-10-PCS; 2018-04-17)
DX: G04.91 Myelitis, unspecified (principal); K40.20 Bilateral inguinal hernia, without obstruction or gangrene, not specified as recurrent; I10 Essential (primary) hypertension; R33.9 Retention of urine, unspecified; F17.210 Nicotine dependence, cigarettes, uncomplicated; E87.8 Other disorders of electrolyte and fluid balance, not elsewhere classified; R73.9 Hyperglycemia, unspecified; K59.00 Constipation, unspecified; N31.9 Neuromuscular dysfunction of bladder, unspecified; E53.8 Deficiency of other specified B group vitamins
CPT/HCPCS: 36415; 70544; 70549; 70551; 71045; 72147; 72158; 74177; 80048; 80053; 80061; 80202; 81001; 82150; 82607; 82746; 82945; 82962; 83036; 83605; 83690; 83735; 83921; 84100; 84153; 84154; 84157; 84439; 84443; 84484; 85025; 85610; 85730; 86021; 86038; 86226; 86235; 86430; 86592; 86703; 86788; 86789; 87040; 87070; 87081; 87086; 87798; 88104; 88305; 89051; 93005; 93306; 93880; 93970; 97110; 97116; 97162; 97530; 99285-25; G0378

== ENCOUNTER 2018-05-09 14:41 | Inpatient (IN) | payer MEDICARE, OTHER ==
[2018-05-09] MEDS ORDERED: NACL 0.9% 3 ML SYG IV (15:00)
[2018-05-09] MEDS: SOD CHLORIDE 0.9% 1,000 ML IV ×2 (15:00→20:36)
[2018-05-09] MEDS ORDERED: ONDANSETRON 4 MG INJ IV (15:00)
[2018-05-09] MEDS ORDERED: ACETAMINOPHEN 325 MG TAB PO (15:00)
[2018-05-09] MEDS ORDERED: DOCUSATE SODIUM 100 MG CAP PO (15:00)
[2018-05-09] MEDS ORDERED: GLUCAGON 1 MG INJ IM (15:30)
[2018-05-09] MEDS ORDERED: GLUCOSE GEL 15 GRAM TUBE BUCCAL (15:30)
[2018-05-09] MEDS ORDERED: DEXTROSE 50% 50 ML SYRINGE IV ×2 (15:30)
[2018-05-09] MEDS ORDERED: GLUCOSE GEL 15 GRAM TUBE PO ×2 (15:30)
[2018-05-09] MEDS ORDERED: PHENOL 1.4% SOLN 180 ML BTL MT (16:00)
[2018-05-09] MEDS ORDERED: BISACODYL (EC) 5 MG TAB PO (16:00)
[2018-05-09] MEDS ORDERED: HYDROCODONE/APAP (5/325) TAB PO (16:00)
[2018-05-09] MEDS ORDERED: DIPHENHYDRAMINE 50 MG CAP PO (16:00)
[2018-05-09] MEDS ORDERED: CEPASTAT LOZENGE MT (16:00)
[2018-05-09] MEDS: PIPER-TAZO 3.375 GM IV (PMX) 100 ML IVPB (17:59)
[2018-05-09] MEDS: INSULIN ASPART [NOVOLOG] 3 ML PEN SC ×2 (18:05→21:30)
[2018-05-09] MEDS: ACYCLOVIR 200 MG CAP PO (20:32)
[2018-05-09] MEDS: FAMOTIDINE 20 MG TAB PO (20:32)
[2018-05-09] MEDS: BETHANECHOL 25 MG TAB PO (20:32)
[2018-05-09] MEDS: HYDROCORTISONE 2.5% 28.35 GM CR TOP (20:33)
[2018-05-09] MEDS: BALSAM PERU/CASTOR OIL 60 GM TUBE TOP (20:33)
[2018-05-09] MEDS: TAMSULOSIN (SR) 0.4 MG CAP PO (20:35)
[2018-05-09] MEDS: MAGNESIUM HYDROXIDE 30ML CUP PO (21:00)
[2018-05-09] MEDS: DOCUSATE SODIUM 100 MG CAP PO (21:00)
[2018-05-10] MEDS: PIPER-TAZO 3.375 GM IV (PMX) 100 ML IVPB ×3 (00:31→11:44)
[2018-05-10] MEDS: ACCU-CHEK XX (02:00)
[2018-05-10 05:09] LABS: ADD MAN DIFF? NO
[2018-05-10 05:23] LABS: BASOPHILS % 0.2 % (0.0-2.0); EOSINOPHILS # 0.6 10^3/ul (0.0-0.5); EOSINOPHILS % 11.3 % (0.0-7.0); HEMATOCRIT 29.6 % (42.0-52.0); HEMOGLOBIN 10.2 g/dl (14.0-18.0); LYMPHOCYTES # 0.6 10^3/ul (0.8-2.9); MEAN CORPUSCULAR HEMOGLOBIN 30.6 pg (29.0-33.0); MEAN CORPUSCULAR HGB CONC 34.5 g/dl (32.0-37.0); MEAN CORPUSCULAR VOLUME 88.9 fl (82.0-101.0); MEAN PLATELET VOLUME 9.7 fl (7.4-10.4); MONOCYTE # 0.4 10^3/ul (0.3-0.9); MONOCYTES % 6.6 % (0.0-11.0); NEUTROPHIL # 3.7 10^3/ul (1.6-7.5); NEUTROPHILS % 68.6 % (39.0-77.0); PLATELET COUNT 182 10^3/UL (140-415); RED BLOOD COUNT 3.33 10^6/ul (4.70-6.10); RED CELL DISTRIBUTION WIDTH 14.4 % (11.5-14.5)
[2018-05-10 05:23] LABS: WHITE BLOOD COUNT 5.3 10^3/ul (4.8-10.8)
[2018-05-10] MEDS: SOD CHLORIDE 0.9% 1,000 ML IV (05:32)
[2018-05-10 05:52] LABS: ANION GAP 2 (5-13); BLOOD UREA NITROGEN 9 mg/dl (7-20); CALCIUM 8.1 mg/dl (8.4-10.2); CARBON DIOXIDE 24 mmol/L (21-31); CHLORIDE 109 mmol/L (97-110); CREATININE 0.62 mg/dl (0.61-1.24); GLUCOSE 125 mg/dl (70-220); MAGNESIUM 1.8 mg/dl (1.7-2.5); PHOSPHORUS 2.2 mg/dl (2.5-4.9); POTASSIUM 3.4 mmol/L (3.5-5.1); SODIUM 135 mmol/L (135-144)
[2018-05-10 05:58] LABS: VANCOMYCIN,TROUGH < 5.0 ug/ml (10.0-20.0)
[2018-05-10] MEDS: INSULIN ASPART [NOVOLOG] 3 ML PEN SC ×4 (07:59→21:20)
[2018-05-10] MEDS: FINASTERIDE 5 MG TAB PO ×2 (08:39→21:11)
[2018-05-10] MEDS: ASCORBIC ACID 250 MG TAB PO (08:39)
[2018-05-10] MEDS: ACYCLOVIR 200 MG CAP PO ×3 (08:40→21:11)
[2018-05-10] MEDS: TAMSULOSIN (SR) 0.4 MG CAP PO ×2 (08:40→21:10)
[2018-05-10] MEDS: SENNA/DOCUSATE NA (8.6MG/50MG) TAB PO (08:40)
[2018-05-10] MEDS: FAMOTIDINE 20 MG TAB PO ×2 (08:40→21:11)
[2018-05-10] MEDS: LINAGLIPTIN 5 MG TABLET PO (08:40)
[2018-05-10] MEDS: BETHANECHOL 25 MG TAB PO ×3 (08:40→21:11)
[2018-05-10] MEDS: CYANOCOBALAMIN 1000 MCG INJ IM (08:41)
[2018-05-10] MEDS: BALSAM PERU/CASTOR OIL 60 GM TUBE TOP ×2 (08:42→21:17)
[2018-05-10] MEDS: HYDROCORTISONE 2.5% 28.35 GM CR TOP ×2 (08:42→21:17)
[2018-05-10] MEDS: BISACODYL 10 MG SUPP PR (08:44)
[2018-05-10] MEDS: MAGNESIUM HYDROXIDE 30ML CUP PO ×2 (08:45→21:00)
[2018-05-10] MEDS: DOCUSATE SODIUM 100 MG CAP PO ×2 (08:45→21:00)
[2018-05-10] MEDS: ENOXAPARIN 40 MG/0.4 ML SYG SC (08:46)
[2018-05-10] MEDS: POTASSIUM CHLORIDE (SR) 20 MEQ TAB PO (13:00)
[2018-05-10] MEDS: FUROSEMIDE 20 MG INJ IV (13:01)
[2018-05-10] MEDS: predniSONE 20 MG TAB PO (15:10)
[2018-05-10] MEDS: CIPROFLOXACIN 500 MG TAB PO (18:13)
[2018-05-11] MEDS: ACCU-CHEK XX (02:00)
[2018-05-11] MEDS: CIPROFLOXACIN 500 MG TAB PO ×2 (05:12→17:42)
[2018-05-11 06:11] LABS: ADD MAN DIFF? NO
[2018-05-11 06:15] LABS: WHITE BLOOD COUNT 3.9 10^3/ul (4.8-10.8)
[2018-05-11 06:15] LABS: ABNORMAL IP MESSAGE 1; BASOPHILS % 0.3 % (0.0-2.0); EOSINOPHILS # 0.2 10^3/ul (0.0-0.5); EOSINOPHILS % 4.7 % (0.0-7.0); HEMOGLOBIN 10.6 g/dl (14.0-18.0); LYMPHOCYTES # 0.6 10^3/ul (0.8-2.9); LYMPHOCYTES % 15.2 % (15.0-51.0); MEAN CORPUSCULAR HEMOGLOBIN 30.1 pg (29.0-33.0); MEAN CORPUSCULAR HGB CONC 34.2 g/dl (32.0-37.0); MEAN CORPUSCULAR VOLUME 88.1 fl (82.0-101.0); MEAN PLATELET VOLUME 9.5 fl (7.4-10.4); MONOCYTE # 0.3 10^3/ul (0.3-0.9); MONOCYTES % 7.8 % (0.0-11.0); NEUTROPHIL # 2.7 10^3/ul (1.6-7.5); NEUTROPHILS % 70.7 % (39.0-77.0); PLATELET COUNT 234 10^3/UL (140-415); POSITIVE DIFF @See below; RED BLOOD COUNT 3.52 10^6/ul (4.70-6.10); RED CELL DISTRIBUTION WIDTH 13.9 % (11.5-14.5)
[2018-05-11 06:30] LABS: ANION GAP 3 (5-13); BLOOD UREA NITROGEN 11 mg/dl (7-20); CALCIUM 8.8 mg/dl (8.4-10.2); CARBON DIOXIDE 27 mmol/L (21-31); CHLORIDE 105 mmol/L (97-110); CREATININE 0.63 mg/dl (0.61-1.24); GLUCOSE 161 mg/dl (70-220); MAGNESIUM 1.8 mg/dl (1.7-2.5); POTASSIUM 3.6 mmol/L (3.5-5.1); SODIUM 135 mmol/L (135-144)
[2018-05-11] MEDS: INSULIN ASPART [NOVOLOG] 3 ML PEN SC ×4 (08:00→20:51)
[2018-05-11] MEDS: MAGNESIUM HYDROXIDE 30ML CUP PO ×2 (08:20→20:44)
[2018-05-11] MEDS: FAMOTIDINE 20 MG TAB PO ×2 (08:21→20:45)
[2018-05-11] MEDS: LINAGLIPTIN 5 MG TABLET PO (08:21)
[2018-05-11] MEDS: predniSONE 20 MG TAB PO (08:22)
[2018-05-11] MEDS: ASCORBIC ACID 250 MG TAB PO (08:22)
[2018-05-11] MEDS: BETHANECHOL 25 MG TAB PO ×3 (08:22→20:46)
[2018-05-11] MEDS: TAMSULOSIN (SR) 0.4 MG CAP PO ×2 (08:22→20:46)
[2018-05-11] MEDS: SENNA/DOCUSATE NA (8.6MG/50MG) TAB PO (08:22)
[2018-05-11] MEDS: CYANOCOBALAMIN 1000 MCG INJ IM (08:23)
[2018-05-11] MEDS: BALSAM PERU/CASTOR OIL 60 GM TUBE TOP ×2 (08:23→20:46)
[2018-05-11] MEDS: HYDROCORTISONE 2.5% 28.35 GM CR TOP ×2 (08:23→20:46)
[2018-05-11] MEDS: DOCUSATE SODIUM 100 MG CAP PO ×2 (08:23→20:55)
[2018-05-11] MEDS: ENOXAPARIN 40 MG/0.4 ML SYG SC (08:25)
[2018-05-12] MEDS: ACCU-CHEK XX (02:03)
[2018-05-12] MEDS: CIPROFLOXACIN 500 MG TAB PO ×3 (06:06→17:32)
[2018-05-12 06:41] LABS: ANION GAP 7 (5-13); BLOOD UREA NITROGEN 15 mg/dl (7-20); CALCIUM 8.6 mg/dl (8.4-10.2); CARBON DIOXIDE 24 mmol/L (21-31); CHLORIDE 105 mmol/L (97-110); CREATININE 0.61 mg/dl (0.61-1.24); GLUCOSE 129 mg/dl (70-220); POTASSIUM 3.6 mmol/L (3.5-5.1); SODIUM 136 mmol/L (135-144)
[2018-05-12] MEDS: INSULIN ASPART [NOVOLOG] 3 ML PEN SC ×4 (08:00→20:20)
[2018-05-12] MEDS: MAGNESIUM HYDROXIDE 30ML CUP PO ×2 (08:43→20:17)
[2018-05-12] MEDS: DOCUSATE SODIUM 100 MG CAP PO ×2 (08:43→20:17)
[2018-05-12] MEDS: LINAGLIPTIN 5 MG TABLET PO (08:44)
[2018-05-12] MEDS: SENNA/DOCUSATE NA (8.6MG/50MG) TAB PO (08:44)
[2018-05-12] MEDS: FAMOTIDINE 20 MG TAB PO ×2 (08:44→20:17)
[2018-05-12] MEDS: ASCORBIC ACID 250 MG TAB PO (08:44)
[2018-05-12] MEDS: TAMSULOSIN (SR) 0.4 MG CAP PO ×2 (08:44→20:17)
[2018-05-12] MEDS: predniSONE 20 MG TAB PO (08:44)
[2018-05-12] MEDS: FINASTERIDE 5 MG TAB PO (08:44)
[2018-05-12] MEDS: BETHANECHOL 25 MG TAB PO ×3 (08:44→20:17)
[2018-05-12] MEDS: CYANOCOBALAMIN 1000 MCG INJ IM (08:45)
[2018-05-12] MEDS: BALSAM PERU/CASTOR OIL 60 GM TUBE TOP ×2 (08:45→20:17)
[2018-05-12] MEDS: HYDROCORTISONE 2.5% 28.35 GM CR TOP ×2 (08:45→20:22)
[2018-05-12] MEDS: ENOXAPARIN 40 MG/0.4 ML SYG SC (08:50)
[2018-05-12] MEDS: REPAGLINIDE 1 MG TAB PO ×2 (12:15→17:42)
[2018-05-12] MEDS: NA PHOSPHATE/BIPHOS 133 ML ENEMA PR (17:32)
[2018-05-13] MEDS: ACCU-CHEK XX (01:50)
[2018-05-13] MEDS: CIPROFLOXACIN 500 MG TAB PO (06:00)
[2018-05-13] MEDS: REPAGLINIDE 1 MG TAB PO ×2 (07:00→12:49)
[2018-05-13] MEDS: INSULIN ASPART [NOVOLOG] 3 ML PEN SC ×2 (08:00→12:49)
[2018-05-13] MEDS: BISACODYL 10 MG SUPP PR (09:00)
[2018-05-13] MEDS: HYDROCORTISONE 2.5% 28.35 GM CR TOP (09:00)
[2018-05-13] MEDS: MAGNESIUM HYDROXIDE 30ML CUP PO (09:25)
[2018-05-13] MEDS: DOCUSATE SODIUM 100 MG CAP PO (09:25)
[2018-05-13] MEDS: BETHANECHOL 25 MG TAB PO ×2 (09:25→12:49)
[2018-05-13] MEDS: TAMSULOSIN (SR) 0.4 MG CAP PO (09:25)
[2018-05-13] MEDS: LINAGLIPTIN 5 MG TABLET PO (09:26)
[2018-05-13] MEDS: SENNA/DOCUSATE NA (8.6MG/50MG) TAB PO (09:26)
[2018-05-13] MEDS: FINASTERIDE 5 MG TAB PO (09:26)
[2018-05-13] MEDS: FAMOTIDINE 20 MG TAB PO (09:26)
[2018-05-13] MEDS: ASCORBIC ACID 250 MG TAB PO (09:27)
[2018-05-13] MEDS: predniSONE 20 MG TAB PO (09:27)
[2018-05-13] MEDS: CYANOCOBALAMIN 1000 MCG INJ IM (09:28)
[2018-05-13] MEDS: ENOXAPARIN 40 MG/0.4 ML SYG SC (09:29)
[2018-05-13] MEDS: BALSAM PERU/CASTOR OIL 60 GM TUBE TOP (15:15)
[2018-05-17] MEDS ORDERED: predniSONE 20 MG TAB PO (09:00)
[2018-05-24] MEDS ORDERED: predniSONE 10 MG TAB PO (09:00)
== END 2018-05-13 15:51 | DRG 871 ==
LOC: 2NE 14:41
PROVIDERS: Family Medicine
DX: A41.9 Sepsis, unspecified organism (principal); A92.32 West Nile virus infection with other neurologic manifestation; N39.0 Urinary tract infection, site not specified; G95.9 Disease of spinal cord, unspecified; E11.9 Type 2 diabetes mellitus without complications; R33.8 Other retention of urine; N31.9 Neuromuscular dysfunction of bladder, unspecified; B96.89 Other specified bacterial agents as the cause of diseases classified elsewhere; K40.20 Bilateral inguinal hernia, without obstruction or gangrene, not specified as recurrent; D64.9 Anemia, unspecified; F17.200 Nicotine dependence, unspecified, uncomplicated
CPT/HCPCS: 80048; 80202; 82962; 83735; 84100; 85025; 87081; 97110; 97163; 97530

== ENCOUNTER 2018-05-13 16:10 | Inpatient (IN) | payer MEDICARE, OTHER ==
[2018-05-13] MEDS ORDERED: ACETAMINOPHEN 325 MG TAB PO (16:30)
[2018-05-13] MEDS ORDERED: MAGNESIUM HYDROXIDE 30ML CUP PO (16:30)
[2018-05-13] MEDS ORDERED: LACTULOSE 30ML CUP PO (16:30)
[2018-05-13] MEDS ORDERED: PENDING SANTYL ORDER FOR WOUND CARE XX (17:00)
[2018-05-13] MEDS ORDERED: GLUCAGON 1 MG INJ IM (17:05)
[2018-05-13] MEDS ORDERED: ONDANSETRON 4 MG INJ IV (17:05)
[2018-05-13] MEDS ORDERED: DIPHENHYDRAMINE 50 MG CAP PO (17:05)
[2018-05-13] MEDS ORDERED: GLUCOSE GEL 15 GRAM TUBE BUCCAL (17:05)
[2018-05-13] MEDS ORDERED: PHENOL 1.4% SOLN 180 ML BTL MT (17:05)
[2018-05-13] MEDS: REPAGLINIDE 1 MG TAB PO (17:05)
[2018-05-13] MEDS ORDERED: DEXTROSE 50% 50 ML SYRINGE IV ×2 (17:05)
[2018-05-13] MEDS ORDERED: CEPASTAT LOZENGE MT (17:05)
[2018-05-13] MEDS ORDERED: NACL 0.9% 3 ML SYG IV (17:05)
[2018-05-13] MEDS ORDERED: HYDROCODONE/APAP (5/325) TAB PO (17:05)
[2018-05-13] MEDS ORDERED: GLUCOSE GEL 15 GRAM TUBE PO ×2 (17:05)
[2018-05-13] MEDS: CIPROFLOXACIN 500 MG TAB PO ×2 (17:24→17:29)
[2018-05-13] MEDS: INSULIN ASPART [NOVOLOG] 3 ML PEN SC ×2 (17:25→22:40)
[2018-05-13 19:05] LABS: ADD UMIC NO; UR AMORPHOUS CRYSTAL MODERATE /HPF (NONE SEEN); UR ASCORBIC ACID NEGATIVE (NEGATIVE); UR BACTERIA FEW /HPF (NONE SEEN); UR BILIRUBIN (Dip) NEGATIVE (NEGATIVE); UR BLOOD (Dip) NEGATIVE (NEGATIVE); UR CLARITY SLIGHTLY CLOUDY (CLEAR); UR COLOR YELLOW (YELLOW); UR GLUCOSE (Dip) 3+ mg/dL (NEGATIVE); UR KETONES (Dip) NEGATIVE (NEGATIVE); UR LEUKOCYTE ESTERASE (Dip) NEGATIVE Leu/ul (NEGATIVE); UR MUCUS FEW /HPF (NONE SEEN); UR NITRITE (Dip) NEGATIVE (NEGATIVE); UR RBC 1 /HPF (0-5); UR TOTAL PROTEIN (Dip) NEGATIVE (NEGATIVE); UR UROBILINOGEN (Dip) 1+ mg/dL (NEGATIVE); UR WBC 1 /HPF (0-5)
[2018-05-13] MEDS: HYDROCORTISONE 2.5% 28.35 GM CR TOP (21:00)
[2018-05-13] MEDS ORDERED: SENNA TAB PO (21:00)
[2018-05-13] MEDS: DOCUSATE SODIUM 100 MG CAP PO ×2 (21:00)
[2018-05-13] MEDS: FAMOTIDINE 20 MG TAB PO (21:00)
[2018-05-13] MEDS: BETHANECHOL 25 MG TAB PO (21:41)
[2018-05-13] MEDS: TAMSULOSIN (SR) 0.4 MG CAP PO (21:41)
[2018-05-13] MEDS: MAGNESIUM HYDROXIDE 30ML CUP PO (22:36)
[2018-05-13] MEDS: BALSAM PERU/CASTOR OIL 60 GM TUBE TOP (22:50)
[2018-05-14] MEDS: ACCU-CHEK XX (02:25)
[2018-05-14] MEDS: CIPROFLOXACIN 500 MG TAB PO ×2 (06:33→17:21)
[2018-05-14 06:38] LABS: ADD MAN DIFF? NO
[2018-05-14 07:31] LABS: ALANINE AMINOTRANSFERASE 64 IU/L (13-69); ALBUMIN 2.7 g/dl (3.3-4.9); ALBUMIN/GLOBULIN RATIO 0.81; ALKALINE PHOSPHATASE 33 IU/L (42-121); ANION GAP 9 (5-13); ASPARTATE AMINO TRANSFERASE 60 IU/L (15-46); BILIRUBIN,INDIRECT 0.7 mg/dl (0-1.1); BILIRUBIN,TOTAL 0.7 mg/dl (0.2-1.3); BLOOD UREA NITROGEN 16 mg/dl (7-20); CALCIUM 8.2 mg/dl (8.4-10.2); CARBON DIOXIDE 22 mmol/L (21-31); CHLORIDE 102 mmol/L (97-110); CREATININE 0.56 mg/dl (0.61-1.24); GLUCOSE 98 mg/dl (70-220); POTASSIUM 4.7 mmol/L (3.5-5.1); SODIUM 133 mmol/L (135-144)
[2018-05-14] MEDS: INSULIN ASPART [NOVOLOG] 3 ML PEN SC ×4 (07:35→20:43)
[2018-05-14] MEDS: REPAGLINIDE 1 MG TAB PO ×3 (07:51→17:21)
[2018-05-14] MEDS: FAMOTIDINE 20 MG TAB PO ×2 (09:00→20:47)
[2018-05-14] MEDS: HYDROCORTISONE 2.5% 28.35 GM CR TOP ×2 (09:00→20:48)
[2018-05-14 09:23] LABS: WHITE BLOOD COUNT 5.5 10^3/ul (4.8-10.8)
[2018-05-14 09:23] LABS: ABNORMAL IP MESSAGE 1; BASOPHILS % 0.7 % (0.0-2.0); EOSINOPHILS # 0.5 10^3/ul (0.0-0.5); EOSINOPHILS % 8.1 % (0.0-7.0); HEMOGLOBIN 11.2 g/dl (14.0-18.0); LYMPHOCYTES # 1.5 10^3/ul (0.8-2.9); LYMPHOCYTES % 27.1 % (15.0-51.0); MEAN CORPUSCULAR HEMOGLOBIN 29.9 pg (29.0-33.0); MEAN CORPUSCULAR HGB CONC 33.9 g/dl (32.0-37.0); MEAN PLATELET VOLUME 9.2 fl (7.4-10.4); MONOCYTE # 0.5 10^3/ul (0.3-0.9); MONOCYTES % 9.6 % (0.0-11.0); NEUTROPHIL # 2.7 10^3/ul (1.6-7.5); NEUTROPHILS % 49.3 % (39.0-77.0); PLATELET COUNT 297 10^3/UL (140-415); RED BLOOD COUNT 3.75 10^6/ul (4.70-6.10); RED CELL DISTRIBUTION WIDTH 13.8 % (11.5-14.5)
[2018-05-14] MEDS: BALSAM PERU/CASTOR OIL 60 GM TUBE TOP ×2 (09:57→20:49)
[2018-05-14] MEDS: MAGNESIUM HYDROXIDE 30ML CUP PO ×2 (09:57→20:41)
[2018-05-14] MEDS: DOCUSATE SODIUM 100 MG CAP PO ×2 (09:58→20:47)
[2018-05-14] MEDS: ASCORBIC ACID 250 MG TAB PO (09:58)
[2018-05-14] MEDS: TAMSULOSIN (SR) 0.4 MG CAP PO ×2 (09:58→20:47)
[2018-05-14] MEDS: BETHANECHOL 25 MG TAB PO ×3 (09:58→20:47)
[2018-05-14] MEDS: predniSONE 20 MG TAB PO (09:58)
[2018-05-14] MEDS: FINASTERIDE 5 MG TAB PO (09:58)
[2018-05-14] MEDS: SENNA/DOCUSATE NA (8.6MG/50MG) TAB PO (09:58)
[2018-05-14] MEDS: ENOXAPARIN 40 MG/0.4 ML SYG SC (09:59)
[2018-05-14] MEDS: LINAGLIPTIN 5 MG TABLET PO (10:02)
[2018-05-14] MEDS: CYANOCOBALAMIN 1000 MCG INJ IM (10:07)
[2018-05-14 10:44] LABS: ANISOCYTOSIS 3+ (0-0); BAND NEUTROPHILS % (M) 1 % (0-4); BURR CELLS 1+ (0-0); EOSINOPHILS % (M) 7 % (0-7); GIANT THROMBO% (M) 1 % (0-0); LYMPHOCYTES #M 1.4 10^3/ul (0.8-2.9); LYMPHOCYTES % (M) 27 % (15-51); MONOCYTE #M 0.4 10^3/ul (0.3-0.9); MONOCYTES % (M) 9 % (0-11); MYELOCYTES #M 0.2 10^3/ul (0.0-0.0); MYELOCYTES % (M) 5 % (0-0); PLATELET ESTIMATE NORMAL; POIKILOCYTOSIS 1+ (0-0); POLYCHROMASIA 3+ (0-0); PROMYELOCYTES % (M) 1 % (0-0); REACTIVE LYMPHOCYTES% (M) 1 % (0-0); SCHISTOCYTES 1+ (0-0); SEG NEUT #M 2.7 10^3/ul (1.6-7.5); SEGMENTED NEUTROPHILS (M) % 49 % (39-77); SMUDGE%M 1 % (0-0)
[2018-05-15] MEDS: ACCU-CHEK XX (02:45)
[2018-05-15] MEDS: CIPROFLOXACIN 500 MG TAB PO ×2 (06:08→17:27)
[2018-05-15] MEDS: INSULIN ASPART [NOVOLOG] 3 ML PEN SC ×4 (07:35→21:45)
[2018-05-15] MEDS: REPAGLINIDE 1 MG TAB PO ×3 (08:00→17:27)
[2018-05-15] MEDS: SENNA/DOCUSATE NA (8.6MG/50MG) TAB PO (09:00)
[2018-05-15] MEDS: HYDROCORTISONE 2.5% 28.35 GM CR TOP ×2 (09:00→21:00)
[2018-05-15] MEDS: DOCUSATE SODIUM 100 MG CAP PO ×2 (09:00→21:38)
[2018-05-15] MEDS: MAGNESIUM HYDROXIDE 30ML CUP PO ×2 (09:00→21:00)
[2018-05-15] MEDS: LINAGLIPTIN 5 MG TABLET PO (09:12)
[2018-05-15] MEDS: FINASTERIDE 5 MG TAB PO (09:12)
[2018-05-15] MEDS: BISACODYL 10 MG SUPP PR (09:12)
[2018-05-15] MEDS: ASCORBIC ACID 250 MG TAB PO (09:12)
[2018-05-15] MEDS: FAMOTIDINE 20 MG TAB PO ×2 (09:12→21:38)
[2018-05-15] MEDS: TAMSULOSIN (SR) 0.4 MG CAP PO ×2 (09:12→21:38)
[2018-05-15] MEDS: BETHANECHOL 25 MG TAB PO ×3 (09:12→21:38)
[2018-05-15] MEDS: CYANOCOBALAMIN 1000 MCG INJ IM (09:13)
[2018-05-15] MEDS: predniSONE 20 MG TAB PO (09:13)
[2018-05-15] MEDS: BALSAM PERU/CASTOR OIL 60 GM TUBE TOP ×2 (09:14→21:40)
[2018-05-15] MEDS: ENOXAPARIN 40 MG/0.4 ML SYG SC (09:14)
[2018-05-15] MEDS: MUPIROCIN 2% 22 GM OINT TOP (21:39)
[2018-05-15] MEDS: NA PHOSPHATE/BIPHOS 133 ML ENEMA PR (21:49)
[2018-05-16] MEDS: ACCU-CHEK XX (02:38)
[2018-05-16] MEDS: INSULIN ASPART [NOVOLOG] 3 ML PEN SC ×4 (07:35→21:24)
[2018-05-16] MEDS: CIPROFLOXACIN 500 MG TAB PO (07:59)
[2018-05-16] MEDS: REPAGLINIDE 1 MG TAB PO ×3 (08:01→18:33)
[2018-05-16] MEDS: LINAGLIPTIN 5 MG TABLET PO (08:28)
[2018-05-16] MEDS: predniSONE 20 MG TAB PO (08:48)
[2018-05-16] MEDS: FAMOTIDINE 20 MG TAB PO ×2 (08:49→21:14)
[2018-05-16] MEDS: SENNA/DOCUSATE NA (8.6MG/50MG) TAB PO (08:49)
[2018-05-16] MEDS: FINASTERIDE 5 MG TAB PO (08:49)
[2018-05-16] MEDS: TAMSULOSIN (SR) 0.4 MG CAP PO ×2 (08:49→21:15)
[2018-05-16] MEDS: BETHANECHOL 25 MG TAB PO ×3 (08:49→21:24)
[2018-05-16] MEDS: DOCUSATE SODIUM 100 MG CAP PO ×2 (08:50→21:13)
[2018-05-16] MEDS: ASCORBIC ACID 250 MG TAB PO (08:50)
[2018-05-16] MEDS: MUPIROCIN 2% 22 GM OINT TOP ×2 (08:55→21:28)
[2018-05-16] MEDS: BALSAM PERU/CASTOR OIL 60 GM TUBE TOP (08:55)
[2018-05-16] MEDS: HYDROCORTISONE 2.5% 28.35 GM CR TOP ×2 (08:56→21:29)
[2018-05-16] MEDS: CYANOCOBALAMIN 1000 MCG INJ IM (09:04)
[2018-05-16] MEDS: MAGNESIUM HYDROXIDE 30ML CUP PO ×2 (09:04→21:15)
[2018-05-16] MEDS: ENOXAPARIN 40 MG/0.4 ML SYG SC (09:34)
[2018-05-16] MEDS ORDERED: COLLAGENASE 5 GM (UD JAR) TOP (20:30)
[2018-05-17] MEDS: ACCU-CHEK XX (02:00)
[2018-05-17] MEDS: INSULIN ASPART [NOVOLOG] 3 ML PEN SC ×4 (07:35→21:00)
[2018-05-17] MEDS: MUPIROCIN 2% 22 GM OINT TOP ×2 (08:40→21:00)
[2018-05-17] MEDS: COLLAGENASE 5 GM (UD JAR) TOP (08:40)
[2018-05-17] MEDS: REPAGLINIDE 1 MG TAB PO ×3 (08:41→19:17)
[2018-05-17] MEDS: TAMSULOSIN (SR) 0.4 MG CAP PO ×2 (08:41→20:59)
[2018-05-17] MEDS: FINASTERIDE 5 MG TAB PO (08:41)
[2018-05-17] MEDS: SENNA/DOCUSATE NA (8.6MG/50MG) TAB PO (08:41)
[2018-05-17] MEDS: ASCORBIC ACID 250 MG TAB PO (08:41)
[2018-05-17] MEDS: BETHANECHOL 25 MG TAB PO ×3 (08:41→20:59)
[2018-05-17] MEDS: predniSONE 20 MG TAB PO (08:41)
[2018-05-17] MEDS: MAGNESIUM HYDROXIDE 30ML CUP PO ×2 (08:41→20:59)
[2018-05-17] MEDS: FAMOTIDINE 20 MG TAB PO ×2 (08:41→20:59)
[2018-05-17] MEDS: DOCUSATE SODIUM 100 MG CAP PO ×2 (08:42→20:59)
[2018-05-17] MEDS: LINAGLIPTIN 5 MG TABLET PO (08:42)
[2018-05-17] MEDS: CYANOCOBALAMIN 1000 MCG INJ IM (08:42)
[2018-05-17] MEDS: ENOXAPARIN 40 MG/0.4 ML SYG SC (08:43)
[2018-05-17] MEDS: BISACODYL 10 MG SUPP PR (08:45)
[2018-05-17] MEDS: HYDROCORTISONE 2.5% 28.35 GM CR TOP ×2 (09:00→21:00)
[2018-05-17] MEDS ORDERED: PENDING SANTYL ORDER FOR WOUND CARE XX (09:00)
[2018-05-18] MEDS: ACCU-CHEK XX (02:00)
[2018-05-18] MEDS: INSULIN ASPART [NOVOLOG] 3 ML PEN SC ×4 (07:35→21:00)
[2018-05-18] MEDS: REPAGLINIDE 1 MG TAB PO ×3 (07:56→17:27)
[2018-05-18] MEDS: LINAGLIPTIN 5 MG TABLET PO (07:57)
[2018-05-18] MEDS: FAMOTIDINE 20 MG TAB PO ×2 (09:19→22:01)
[2018-05-18] MEDS: SENNA/DOCUSATE NA (8.6MG/50MG) TAB PO (09:19)
[2018-05-18] MEDS: FINASTERIDE 5 MG TAB PO (09:19)
[2018-05-18] MEDS: DOCUSATE SODIUM 100 MG CAP PO ×2 (09:19→22:01)
[2018-05-18] MEDS: TAMSULOSIN (SR) 0.4 MG CAP PO ×2 (09:19→22:01)
[2018-05-18] MEDS: predniSONE 20 MG TAB PO (09:19)
[2018-05-18] MEDS: BETHANECHOL 25 MG TAB PO ×3 (09:19→22:01)
[2018-05-18] MEDS: ASCORBIC ACID 250 MG TAB PO (09:19)
[2018-05-18] MEDS: HYDROCORTISONE 2.5% 28.35 GM CR TOP ×2 (09:20→21:00)
[2018-05-18] MEDS: MAGNESIUM HYDROXIDE 30ML CUP PO ×2 (09:20→21:00)
[2018-05-18] MEDS: CYANOCOBALAMIN 1000 MCG INJ IM (09:20)
[2018-05-18] MEDS: MUPIROCIN 2% 22 GM OINT TOP ×2 (09:20→22:00)
[2018-05-18] MEDS: ENOXAPARIN 40 MG/0.4 ML SYG SC (09:22)
[2018-05-18] MEDS: NA PHOSPHATE/BIPHOS 133 ML ENEMA PR (13:43)
[2018-05-19] MEDS: ACCU-CHEK XX (02:00)
[2018-05-19] MEDS: INSULIN ASPART [NOVOLOG] 3 ML PEN SC ×4 (07:35→21:00)
[2018-05-19] MEDS: REPAGLINIDE 1 MG TAB PO ×3 (08:18→17:49)
[2018-05-19] MEDS: LINAGLIPTIN 5 MG TABLET PO (09:00)
[2018-05-19] MEDS: MUPIROCIN 2% 22 GM OINT TOP ×2 (09:00→20:36)
[2018-05-19] MEDS: FAMOTIDINE 20 MG TAB PO ×2 (09:00→20:35)
[2018-05-19] MEDS: predniSONE 20 MG TAB PO (09:00)
[2018-05-19] MEDS: MAGNESIUM HYDROXIDE 30ML CUP PO ×2 (09:00→20:46)
[2018-05-19] MEDS: FINASTERIDE 5 MG TAB PO (09:00)
[2018-05-19] MEDS: DOCUSATE SODIUM 100 MG CAP PO ×2 (09:00→20:35)
[2018-05-19] MEDS: HYDROCORTISONE 2.5% 28.35 GM CR TOP ×2 (09:00→21:00)
[2018-05-19] MEDS: CYANOCOBALAMIN 1000 MCG INJ IM (09:00)
[2018-05-19] MEDS: ENOXAPARIN 40 MG/0.4 ML SYG SC (09:00)
[2018-05-19] MEDS: TAMSULOSIN (SR) 0.4 MG CAP PO ×2 (12:46→17:50)
[2018-05-19] MEDS: SENNA/DOCUSATE NA (8.6MG/50MG) TAB PO (12:47)
[2018-05-19] MEDS: BETHANECHOL 25 MG TAB PO ×3 (12:48→20:35)
[2018-05-19] MEDS: ACETAMINOPHEN 325 MG TAB PO (17:48)
[2018-05-19] MEDS: ASCORBIC ACID 250 MG TAB PO (17:49)
[2018-05-19] MEDS: COLLAGENASE 5 GM (UD JAR) TOP (17:51)
[2018-05-20] MEDS: ACCU-CHEK XX (02:00)
[2018-05-20] MEDS: INSULIN ASPART [NOVOLOG] 3 ML PEN SC ×4 (07:35→22:00)
[2018-05-20] MEDS: LINAGLIPTIN 5 MG TABLET PO (08:18)
[2018-05-20] MEDS: BISACODYL 10 MG SUPP PR ×2 (09:00→09:04)
[2018-05-20] MEDS: MAGNESIUM HYDROXIDE 30ML CUP PO ×2 (09:03→21:00)
[2018-05-20] MEDS: CYANOCOBALAMIN 1000 MCG INJ IM (09:03)
[2018-05-20] MEDS: REPAGLINIDE 1 MG TAB PO ×3 (09:03→17:19)
[2018-05-20] MEDS: FINASTERIDE 5 MG TAB PO (09:04)
[2018-05-20] MEDS: TAMSULOSIN (SR) 0.4 MG CAP PO ×2 (09:04→21:58)
[2018-05-20] MEDS: ASCORBIC ACID 250 MG TAB PO (09:04)
[2018-05-20] MEDS: SENNA/DOCUSATE NA (8.6MG/50MG) TAB PO (09:04)
[2018-05-20] MEDS: BETHANECHOL 25 MG TAB PO ×3 (09:04→21:58)
[2018-05-20] MEDS: ENOXAPARIN 40 MG/0.4 ML SYG SC (09:04)
[2018-05-20] MEDS: FAMOTIDINE 20 MG TAB PO ×2 (09:04→21:58)
[2018-05-20] MEDS: predniSONE 20 MG TAB PO (09:04)
[2018-05-20] MEDS: DOCUSATE SODIUM 100 MG CAP PO ×2 (09:05→21:58)
[2018-05-20] MEDS: COLLAGENASE 5 GM (UD JAR) TOP (09:08)
[2018-05-20] MEDS: MUPIROCIN 2% 22 GM OINT TOP ×2 (09:09→22:00)
[2018-05-20] MEDS: HYDROCORTISONE 2.5% 28.35 GM CR TOP ×2 (09:09→21:00)
[2018-05-21] MEDS: ACCU-CHEK XX (02:00)
[2018-05-21] MEDS: INSULIN ASPART [NOVOLOG] 3 ML PEN SC ×4 (07:35→21:00)
[2018-05-21] MEDS: REPAGLINIDE 1 MG TAB PO ×3 (07:51→18:00)
[2018-05-21] MEDS: LINAGLIPTIN 5 MG TABLET PO (07:51)
[2018-05-21] MEDS: HYDROCORTISONE 2.5% 28.35 GM CR TOP ×2 (09:00→21:00)
[2018-05-21] MEDS: ASCORBIC ACID 250 MG TAB PO (09:08)
[2018-05-21] MEDS: SENNA/DOCUSATE NA (8.6MG/50MG) TAB PO (09:08)
[2018-05-21] MEDS: FAMOTIDINE 20 MG TAB PO ×2 (09:08→20:34)
[2018-05-21] MEDS: DOCUSATE SODIUM 100 MG CAP PO ×2 (09:08→20:34)
[2018-05-21] MEDS: predniSONE 20 MG TAB PO (09:08)
[2018-05-21] MEDS: FINASTERIDE 5 MG TAB PO (09:08)
[2018-05-21] MEDS: TAMSULOSIN (SR) 0.4 MG CAP PO ×2 (09:08→20:34)
[2018-05-21] MEDS: CYANOCOBALAMIN 1000 MCG INJ IM (09:08)
[2018-05-21] MEDS: BETHANECHOL 25 MG TAB PO ×3 (09:09→20:34)
[2018-05-21] MEDS: ENOXAPARIN 40 MG/0.4 ML SYG SC (09:09)
[2018-05-21] MEDS: COLLAGENASE 5 GM (UD JAR) TOP (09:10)
[2018-05-21] MEDS: MUPIROCIN 2% 22 GM OINT TOP (09:10)
[2018-05-21] MEDS: MAGNESIUM HYDROXIDE 30ML CUP PO ×2 (12:19→21:00)
[2018-05-21] MEDS: NA PHOSPHATE/BIPHOS 133 ML ENEMA PR (14:57)
[2018-05-22] MEDS: ACCU-CHEK XX (02:00)
[2018-05-22] MEDS: INSULIN ASPART [NOVOLOG] 3 ML PEN SC ×4 (07:35→21:24)
[2018-05-22] MEDS: LINAGLIPTIN 5 MG TABLET PO (08:13)
[2018-05-22] MEDS: REPAGLINIDE 1 MG TAB PO ×3 (08:14→17:37)
[2018-05-22] MEDS: FAMOTIDINE 20 MG TAB PO ×2 (09:00→21:20)
[2018-05-22] MEDS: MAGNESIUM HYDROXIDE 30ML CUP PO ×2 (10:31→21:19)
[2018-05-22] MEDS: TAMSULOSIN (SR) 0.4 MG CAP PO ×2 (10:31→21:20)
[2018-05-22] MEDS: BETHANECHOL 25 MG TAB PO ×3 (10:32→21:19)
[2018-05-22] MEDS: SENNA/DOCUSATE NA (8.6MG/50MG) TAB PO (10:32)
[2018-05-22] MEDS: DOCUSATE SODIUM 100 MG CAP PO ×2 (10:33→21:20)
[2018-05-22] MEDS: FINASTERIDE 5 MG TAB PO (10:33)
[2018-05-22] MEDS: predniSONE 20 MG TAB PO (10:33)
[2018-05-22] MEDS: ASCORBIC ACID 250 MG TAB PO (10:33)
[2018-05-22] MEDS: CYANOCOBALAMIN 1000 MCG INJ IM (10:34)
[2018-05-22] MEDS: BISACODYL 10 MG SUPP PR (10:36)
[2018-05-22] MEDS: HYDROCORTISONE 2.5% 28.35 GM CR TOP ×2 (10:36→21:00)
[2018-05-22] MEDS: COLLAGENASE 5 GM (UD JAR) TOP ×2 (10:37→17:30)
[2018-05-22] MEDS: ENOXAPARIN 40 MG/0.4 ML SYG SC (10:41)
[2018-05-23] MEDS: ACCU-CHEK XX (02:00)
[2018-05-23] MEDS: INSULIN ASPART [NOVOLOG] 3 ML PEN SC ×4 (07:35→22:35)
[2018-05-23] MEDS: REPAGLINIDE 1 MG TAB PO ×3 (08:15→16:51)
[2018-05-23] MEDS: BETHANECHOL 25 MG TAB PO ×3 (08:54→22:15)
[2018-05-23] MEDS: ASCORBIC ACID 250 MG TAB PO (08:54)
[2018-05-23] MEDS: CYANOCOBALAMIN 1000 MCG INJ IM (08:54)
[2018-05-23] MEDS: FINASTERIDE 5 MG TAB PO (08:54)
[2018-05-23] MEDS: predniSONE 20 MG TAB PO (08:54)
[2018-05-23] MEDS: LINAGLIPTIN 5 MG TABLET PO (08:54)
[2018-05-23] MEDS: SENNA/DOCUSATE NA (8.6MG/50MG) TAB PO (08:54)
[2018-05-23] MEDS: TAMSULOSIN (SR) 0.4 MG CAP PO ×2 (08:54→22:15)
[2018-05-23] MEDS: MAGNESIUM HYDROXIDE 30ML CUP PO ×2 (08:55→22:37)
[2018-05-23] MEDS: FAMOTIDINE 20 MG TAB PO ×2 (08:55→22:14)
[2018-05-23] MEDS: DOCUSATE SODIUM 100 MG CAP PO ×2 (08:55→22:37)
[2018-05-23] MEDS: HYDROCORTISONE 2.5% 28.35 GM CR TOP ×2 (14:28→22:27)
[2018-05-23] MEDS: COLLAGENASE 5 GM (UD JAR) TOP (14:29)
[2018-05-23] MEDS: ENOXAPARIN 40 MG/0.4 ML SYG SC (14:36)
[2018-05-23] MEDS: REPAGLINIDE 2 MG TAB PO (17:22)
[2018-05-23] MEDS ORDERED: REPAGLINIDE 2 MG TAB PO (17:30)
[2018-05-23] MEDS: BISACODYL 10 MG SUPP PR (22:21)
[2018-05-23] MEDS: NA PHOSPHATE/BIPHOS 133 ML ENEMA PR (23:55)
[2018-05-24] MEDS: ACCU-CHEK XX (01:40)
[2018-05-24] MEDS: INSULIN ASPART [NOVOLOG] 3 ML PEN SC ×4 (07:35→21:00)
[2018-05-24] MEDS: TAMSULOSIN (SR) 0.4 MG CAP PO ×2 (08:19→21:57)
[2018-05-24] MEDS: REPAGLINIDE 2 MG TAB PO ×3 (08:19→17:24)
[2018-05-24] MEDS: FAMOTIDINE 20 MG TAB PO ×2 (08:19→21:57)
[2018-05-24] MEDS: BETHANECHOL 25 MG TAB PO ×3 (08:20→21:57)
[2018-05-24] MEDS: ASCORBIC ACID 250 MG TAB PO (08:20)
[2018-05-24] MEDS: FINASTERIDE 5 MG TAB PO (08:20)
[2018-05-24] MEDS: LINAGLIPTIN 5 MG TABLET PO (08:20)
[2018-05-24] MEDS: COLLAGENASE 5 GM (UD JAR) TOP (08:20)
[2018-05-24] MEDS: predniSONE 10 MG TAB PO (08:20)
[2018-05-24] MEDS: CYANOCOBALAMIN 1000 MCG INJ IM (08:21)
[2018-05-24] MEDS: DOCUSATE SODIUM 100 MG CAP PO ×2 (08:22→21:57)
[2018-05-24] MEDS: MAGNESIUM HYDROXIDE 30ML CUP PO ×2 (08:22→21:57)
[2018-05-24] MEDS: HYDROCORTISONE 2.5% 28.35 GM CR TOP (08:22)
[2018-05-24] MEDS: SENNA/DOCUSATE NA (8.6MG/50MG) TAB PO (08:23)
[2018-05-24] MEDS: BISACODYL 10 MG SUPP PR (08:23)
[2018-05-24] MEDS: ENOXAPARIN 40 MG/0.4 ML SYG SC (08:24)
[2018-05-24] MEDS ORDERED: HYDROCORTISONE 2.5% 28.35 GM CR TOP (19:30)
[2018-05-25] MEDS: ACCU-CHEK XX (02:00)
[2018-05-25] MEDS: INSULIN ASPART [NOVOLOG] 3 ML PEN SC ×4 (07:35→21:00)
[2018-05-25] MEDS: REPAGLINIDE 2 MG TAB PO ×3 (07:48→17:21)
[2018-05-25] MEDS: LINAGLIPTIN 5 MG TABLET PO (07:49)
[2018-05-25] MEDS: MAGNESIUM HYDROXIDE 30ML CUP PO ×2 (08:07→21:00)
[2018-05-25] MEDS: CYANOCOBALAMIN 1000 MCG INJ IM (08:08)
[2018-05-25] MEDS: DOCUSATE SODIUM 100 MG CAP PO ×2 (08:09→21:00)
[2018-05-25] MEDS: FINASTERIDE 5 MG TAB PO (08:09)
[2018-05-25] MEDS: ENOXAPARIN 40 MG/0.4 ML SYG SC (08:09)
[2018-05-25] MEDS: predniSONE 10 MG TAB PO (08:09)
[2018-05-25] MEDS: FAMOTIDINE 20 MG TAB PO ×2 (08:09→21:00)
[2018-05-25] MEDS: SENNA/DOCUSATE NA (8.6MG/50MG) TAB PO (08:09)
[2018-05-25] MEDS: TAMSULOSIN (SR) 0.4 MG CAP PO ×2 (08:09→21:00)
[2018-05-25] MEDS: BETHANECHOL 25 MG TAB PO ×3 (08:09→21:00)
[2018-05-25] MEDS: ASCORBIC ACID 250 MG TAB PO (08:09)
[2018-05-25] MEDS: COLLAGENASE 5 GM (UD JAR) TOP (08:15)
[2018-05-25] MEDS: NA PHOSPHATE/BIPHOS 133 ML ENEMA PR (21:01)
[2018-05-26] MEDS: ACCU-CHEK XX (02:00)
[2018-05-26] MEDS: INSULIN ASPART [NOVOLOG] 3 ML PEN SC ×4 (07:35→21:00)
[2018-05-26] MEDS: DOCUSATE SODIUM 100 MG CAP PO ×2 (08:54→20:32)
[2018-05-26] MEDS: CYANOCOBALAMIN 1000 MCG INJ IM (08:54)
[2018-05-26] MEDS: REPAGLINIDE 2 MG TAB PO ×3 (08:54→17:32)
[2018-05-26] MEDS: predniSONE 10 MG TAB PO (08:55)
[2018-05-26] MEDS: FINASTERIDE 5 MG TAB PO (08:55)
[2018-05-26] MEDS: MAGNESIUM HYDROXIDE 30ML CUP PO ×2 (08:55→20:33)
[2018-05-26] MEDS: FAMOTIDINE 20 MG TAB PO ×2 (08:55→20:32)
[2018-05-26] MEDS: LINAGLIPTIN 5 MG TABLET PO (08:55)
[2018-05-26] MEDS: TAMSULOSIN (SR) 0.4 MG CAP PO ×2 (08:55→20:32)
[2018-05-26] MEDS: SENNA/DOCUSATE NA (8.6MG/50MG) TAB PO (08:55)
[2018-05-26] MEDS: ASCORBIC ACID 250 MG TAB PO (08:56)
[2018-05-26] MEDS: BETHANECHOL 25 MG TAB PO ×3 (08:56→20:32)
[2018-05-26] MEDS: COLLAGENASE 5 GM (UD JAR) TOP (08:56)
[2018-05-26] MEDS: ENOXAPARIN 40 MG/0.4 ML SYG SC (08:57)
[2018-05-27] MEDS: ACCU-CHEK XX (02:00)
[2018-05-27] MEDS: INSULIN ASPART [NOVOLOG] 3 ML PEN SC ×4 (07:35→21:00)
[2018-05-27] MEDS: REPAGLINIDE 2 MG TAB PO ×3 (07:59→17:39)
[2018-05-27] MEDS: LINAGLIPTIN 5 MG TABLET PO (09:00)
[2018-05-27] MEDS: SENNA/DOCUSATE NA (8.6MG/50MG) TAB PO (09:00)
[2018-05-27] MEDS: MAGNESIUM HYDROXIDE 30ML CUP PO ×2 (09:00→21:00)
[2018-05-27] MEDS: BISACODYL 10 MG SUPP PR (09:00)
[2018-05-27] MEDS: FAMOTIDINE 20 MG TAB PO ×2 (09:00→21:44)
[2018-05-27] MEDS: FINASTERIDE 5 MG TAB PO (10:03)
[2018-05-27] MEDS: ASCORBIC ACID 250 MG TAB PO (10:03)
[2018-05-27] MEDS: TAMSULOSIN (SR) 0.4 MG CAP PO ×2 (10:04→21:43)
[2018-05-27] MEDS: BETHANECHOL 25 MG TAB PO ×3 (10:04→21:42)
[2018-05-27] MEDS: DOCUSATE SODIUM 100 MG CAP PO ×2 (10:04→21:00)
[2018-05-27] MEDS: predniSONE 10 MG TAB PO (10:05)
[2018-05-27] MEDS: CYANOCOBALAMIN 1000 MCG INJ IM (10:06)
[2018-05-27] MEDS: ENOXAPARIN 40 MG/0.4 ML SYG SC (10:12)
[2018-05-27] MEDS: COLLAGENASE 5 GM (UD JAR) TOP (10:13)
[2018-05-28] MEDS: ACCU-CHEK XX (02:00)
[2018-05-28] MEDS: INSULIN ASPART [NOVOLOG] 3 ML PEN SC ×4 (07:35→22:00)
[2018-05-28] MEDS: REPAGLINIDE 2 MG TAB PO ×3 (08:06→17:40)
[2018-05-28] MEDS: LINAGLIPTIN 5 MG TABLET PO (08:09)
[2018-05-28] MEDS: ASCORBIC ACID 250 MG TAB PO (08:42)
[2018-05-28] MEDS: BETHANECHOL 25 MG TAB PO ×3 (08:43→21:56)
[2018-05-28] MEDS: predniSONE 10 MG TAB PO (08:43)
[2018-05-28] MEDS: TAMSULOSIN (SR) 0.4 MG CAP PO ×2 (08:43→21:56)
[2018-05-28] MEDS: FINASTERIDE 5 MG TAB PO (08:43)
[2018-05-28] MEDS: FAMOTIDINE 20 MG TAB PO ×2 (08:43→21:55)
[2018-05-28] MEDS: ENOXAPARIN 40 MG/0.4 ML SYG SC (08:49)
[2018-05-28] MEDS: SENNA/DOCUSATE NA (8.6MG/50MG) TAB PO (09:00)
[2018-05-28] MEDS: CYANOCOBALAMIN 1000 MCG INJ IM (09:00)
[2018-05-28] MEDS: DOCUSATE SODIUM 100 MG CAP PO ×2 (09:00→21:00)
[2018-05-28] MEDS: MAGNESIUM HYDROXIDE 30ML CUP PO ×2 (09:00→21:00)
[2018-05-28] MEDS: COLLAGENASE 5 GM (UD JAR) TOP (17:40)
[2018-05-29] MEDS: ACCU-CHEK XX (02:00)
[2018-05-29] MEDS: INSULIN ASPART [NOVOLOG] 3 ML PEN SC ×4 (07:35→21:00)
[2018-05-29] MEDS: LINAGLIPTIN 5 MG TABLET PO (07:46)
[2018-05-29] MEDS: REPAGLINIDE 2 MG TAB PO ×3 (07:46→17:24)
[2018-05-29] MEDS: COLLAGENASE 5 GM (UD JAR) TOP (08:09)
[2018-05-29] MEDS: FAMOTIDINE 20 MG TAB PO ×2 (08:09→21:14)
[2018-05-29] MEDS: MAGNESIUM HYDROXIDE 30ML CUP PO ×2 (08:09→21:00)
[2018-05-29] MEDS: CYANOCOBALAMIN 1000 MCG INJ IM (08:09)
[2018-05-29] MEDS: TAMSULOSIN (SR) 0.4 MG CAP PO ×2 (08:09→21:14)
[2018-05-29] MEDS: DOCUSATE SODIUM 100 MG CAP PO ×2 (08:09→21:00)
[2018-05-29] MEDS: FINASTERIDE 5 MG TAB PO (08:09)
[2018-05-29] MEDS: BETHANECHOL 25 MG TAB PO ×3 (08:09→21:14)
[2018-05-29] MEDS: MULTIVITAMINS THERAPEUTIC TAB PO (08:10)
[2018-05-29] MEDS: ASCORBIC ACID 250 MG TAB PO (08:10)
[2018-05-29] MEDS: SENNA/DOCUSATE NA (8.6MG/50MG) TAB PO (08:10)
[2018-05-29] MEDS: predniSONE 10 MG TAB PO (08:10)
[2018-05-29] MEDS: ENOXAPARIN 40 MG/0.4 ML SYG SC (08:11)
[2018-05-29] MEDS: BISACODYL 10 MG SUPP PR (08:16)
[2018-05-30] MEDS: ACCU-CHEK XX (02:00)
[2018-05-30] MEDS: INSULIN ASPART [NOVOLOG] 3 ML PEN SC ×4 (07:35→21:00)
[2018-05-30] MEDS: REPAGLINIDE 2 MG TAB PO ×3 (07:50→17:18)
[2018-05-30] MEDS: LINAGLIPTIN 5 MG TABLET PO (07:50)
[2018-05-30] MEDS: MAGNESIUM HYDROXIDE 30ML CUP PO ×2 (09:28→21:00)
[2018-05-30] MEDS: FINASTERIDE 5 MG TAB PO (09:28)
[2018-05-30] MEDS: FAMOTIDINE 20 MG TAB PO ×2 (09:28→20:24)
[2018-05-30] MEDS: predniSONE 10 MG TAB PO (09:28)
[2018-05-30] MEDS: MULTIVITAMINS THERAPEUTIC TAB PO (09:28)
[2018-05-30] MEDS: SENNA/DOCUSATE NA (8.6MG/50MG) TAB PO (09:28)
[2018-05-30] MEDS: ASCORBIC ACID 250 MG TAB PO (09:28)
[2018-05-30] MEDS: TAMSULOSIN (SR) 0.4 MG CAP PO ×2 (09:28→20:24)
[2018-05-30] MEDS: DOCUSATE SODIUM 100 MG CAP PO ×2 (09:28→21:00)
[2018-05-30] MEDS: CYANOCOBALAMIN 1000 MCG INJ IM (09:29)
[2018-05-30] MEDS: ENOXAPARIN 40 MG/0.4 ML SYG SC (09:30)
[2018-05-30] MEDS: BETHANECHOL 25 MG TAB PO ×3 (09:58→20:24)
[2018-05-30] MEDS: COLLAGENASE 5 GM (UD JAR) TOP (09:59)
[2018-05-30] MEDS: NA PHOSPHATE/BIPHOS 133 ML ENEMA PR (20:25)
[2018-05-31] MEDS: ACCU-CHEK XX (02:00)
[2018-05-31] MEDS: INSULIN ASPART [NOVOLOG] 3 ML PEN SC (07:35)
[2018-05-31] MEDS: LINAGLIPTIN 5 MG TABLET PO (07:35)
[2018-05-31] MEDS: REPAGLINIDE 2 MG TAB PO (07:35)
[2018-05-31] MEDS: DOCUSATE SODIUM 100 MG CAP PO (08:40)
[2018-05-31] MEDS: BETHANECHOL 25 MG TAB PO (08:40)
[2018-05-31] MEDS: SENNA/DOCUSATE NA (8.6MG/50MG) TAB PO (08:40)
[2018-05-31] MEDS: ASCORBIC ACID 250 MG TAB PO (08:40)
[2018-05-31] MEDS: MULTIVITAMINS THERAPEUTIC TAB PO (08:40)
[2018-05-31] MEDS: FAMOTIDINE 20 MG TAB PO (08:40)
[2018-05-31] MEDS: TAMSULOSIN (SR) 0.4 MG CAP PO (08:40)
[2018-05-31] MEDS: FINASTERIDE 5 MG TAB PO (08:40)
[2018-05-31] MEDS: MAGNESIUM HYDROXIDE 30ML CUP PO (08:41)
[2018-05-31] MEDS: BISACODYL 10 MG SUPP PR (08:41)
[2018-05-31] MEDS: ENOXAPARIN 40 MG/0.4 ML SYG SC (08:45)
[2018-05-31] MEDS: COLLAGENASE 5 GM (UD JAR) TOP (08:46)
[2018-06-06] MEDS ORDERED: CYANOCOBALAMIN 1000 MCG INJ IM (09:00)
== END 2018-05-31 11:05 | disposition home health service (06) | DRG 945 ==
LOC: VRC 05-28 11:29
PROVIDERS: Physical Medicine & Rehabilitation
PROC: F07Z5ZZ Bed Mobility Treatment (ICD-10-PCS; principal; 2018-05-13)
PROC: F08Z2ZZ Grooming/Personal Hygiene Treatment (ICD-10-PCS; 2018-05-13)
DX: R53.81 Other malaise (principal); A92.30 West Nile virus infection, unspecified; N39.0 Urinary tract infection, site not specified; G37.3 Acute transverse myelitis in demyelinating disease of central nervous system; N31.9 Neuromuscular dysfunction of bladder, unspecified; I10 Essential (primary) hypertension; I95.1 Orthostatic hypotension; K40.20 Bilateral inguinal hernia, without obstruction or gangrene, not specified as recurrent; E11.9 Type 2 diabetes mellitus without complications; F17.200 Nicotine dependence, unspecified, uncomplicated; D64.9 Anemia, unspecified; R33.9 Retention of urine, unspecified; G72.9 Myopathy, unspecified; F06.31 Mood disorder due to known physiological condition with depressive features; Z99.3 Dependence on wheelchair; R21 Rash and other nonspecific skin eruption; N40.0 Benign prostatic hyperplasia without lower urinary tract symptoms; E88.9 Metabolic disorder, unspecified
CPT/HCPCS: 80053; 81001; 81003; 82962; 85025; 87081; 87086; 97110; 97112; 97116; 97163; 97167; 97530; 97535; 97542